=== PATIENT | female | born 1930 | race Caucasian/White ===

== ENCOUNTER 2017-04-09 11:43 | Inpatient (IN) | payer MEDICARE, BC ==
[2017-04-09] MEDS ORDERED: MECLIZINE 12.5 MG TAB PO STA (12:05)
[2017-04-09] MEDS ORDERED: SODIUM CHLORIDE 0.9% 500 ML IV STA (12:05)
[2017-04-09] MEDS ORDERED: RX INFO: IV CONTRAST WAS GIVEN 1 EACH MISC MISCELLANE PRN (12:06)
[2017-04-09 12:44] LABS: Basophils % (A) 1 %; CH 32.6; CHCM 33.5; Eosinophils # (A) 0.2 k/uL (0-0.7); Eosinophils % (A) 3 %; HDW 2.53; HGB 10.1 gm/dL (11.4-16.0); Luc # (Auto) 0.17; Luc % (Auto) 3; Lymphocytes % (A) 17 %; MCH 31.8 pg (25.0-35.0); MCHC 32.6 g/dL (31.0-37.0); MCV 97.7 fL (80.0-100.0); Mean Platelet Volume 8.7; Monocytes # (A) 0.4 k/uL (0-1.0); Monocytes % (A) 7 %; Neutrophils # (A) 3.8 k/uL (1.3-7.7); Neutrophils % (A) 69 %; RBC 3.17 m/uL (3.80-5.40); RDW 12.1 % (11.5-15.5); WBC 5.5 k/uL (3.8-10.6); WBC (Perox) 5.47
[2017-04-09 12:53] LABS: Calcium 8.7 mg/dL (8.4-10.2); Potassium 4.7 mmol/L (3.5-5.1); Total Bilirubin 0.1 mg/dL (0.2-1.3); Total Protein 6.4 g/dL (6.3-8.2)
[2017-04-09 12:58] LABS: INR 1.1 (<1.2); Prothrombin Time 10.7 sec (9.0-12.0)
--- NOTE | 2017-04-09 13:18 | XR ---
EXAMINATION TYPE: XR chest 2V DATE OF EXAM: 04/09/2017 COMPARISON: 07/30/2011 HISTORY: Dizziness TECHNIQUE: Frontal and lateral views of the chest are obtained. FINDINGS: There is no focal air space opacity, pleural effusion, or pneumothorax seen. The cardiac silhouette size is within normal limits. The osseous structures are intact. Minimal right basal ate lectasis since the right hemidiaphragm. Thoracic aorta is noted to be tortuous. Flowing osteophytes a re seen of the thoracic spine as well as intervertebral disc space narrowing and endplate sclerosis. Patient's chin obscures the left lung apex. IMPRESSION: Right basilar subsegmental atelectasis. No focal consolidation.
--- NOTE | 2017-04-09 13:45 | CT ---
EXAMINATION TYPE: CT brain wo con DATE OF EXAM: 04/09/2017 COMPARISON: 11/07/2014 HISTORY: Patient complains of dizziness. CT DLP: [address] of the brain was performed. The ventricles, basal cisterns and sulci overlying the cerebral convexities demonstrate mild enlargem ent. There is no evidence for intracranial hemorrhage or sulcal effacement. There is decreased attenuation about the periventricular white matter and deep white matter of both c erebral hemispheres, compatible with chronic small vessel ischemia. Differential diagnosis does inclu de demyelination. No mass effects are seen.No midline shift. Osseous calvarium is intact. If symptoms persist consider MRI. IMPRESSION: 1. Age related atrophic and chronic small vessel ischemic change without acute intracranial process s een at this time.
[2017-04-09 14:15] LABS: Appearance,Urine Clear (Clear); Bilirubin,Urine Negative (Negative); Glucose,Urine (UA) Negative (Negative); Ketones,Urine Negative (Negative); Leukocyte Esterase,Urine Negative (Negative); Nitrite,Urine Negative (Negative); Protein,Urine Negative (Negative); Specific Gravity,Urine 1.004 (1.001-1.035); UA Billing (MACRO vs. MICRO) CHEM; Urobilinogen,Urine <2.0 mg/dL (<2.0)
[2017-04-09] MEDS ORDERED: ASPIRIN 325 MG TAB PO STA (15:50)
[2017-04-09] MEDS ORDERED: NALOXONE 0.4 MG/ML 1 ML VIAL IV PRN (16:03)
[2017-04-09] MEDS ORDERED: ONDANSETRON 4 MG/2 ML VIAL IVP PRN (16:03)
--- NOTE | 2017-04-09 16:15 | ED ---
General Adult HPI - General Chief complaint: Dizziness Stated complaint: Dizziness x7 days Time Seen by Provider: 04/09/17 11:53 Source: patient, family, RN notes reviewed, old records reviewed Mode of arrival: wheelchair Limitations: no limitations - History of Present Illness Initial comments: 80 female with history of expressive aphasia presents for evaluation of vertigo over the past one week. Patient has had symptoms of vertigo for the past 3 years, she states that over the past week she had approximately 3 days of mild vertigo with no associated nausea or vomiting. She is able to contribute to the history of much of the history is obtained from her daughter who is a nurse and is at bedside. Her symptoms then resolved, and returned today. She also noted some difficulty hearing from her left ear. She states that she had this symptom approximately one month ago. Denies any URI symptoms. Denies chest pain or shortness of breath. Denies abdominal pain. Denies fever or chills. Denies dysuria. Denies palpitations. Has past medical history of hypertension , diabetes, and CVA with residual expressive aphasia. - Related Data Home Medications Medication Instructions Recorded Confirmed Dipyridamole-Aspirin 200-25 mg 1 cap PO BID 11/07/14 04/09/17 [Aggrenox] Furosemide [Lasix] 20 mg PO BID 11/07/14 04/09/17 HYDROmorphone [Dilaudid] 2 mg PO Q8H PRN 11/07/14 04/09/17 Lisinopril [Zestril] 10 mg PO BID 11/07/14 04/09/17 Pioglitazone HCl [Actos] 15 mg PO DAILY 11/07/14 04/09/17 Potassium Chloride ER [K-Dur 20] 20 meq PO BID 11/07/14 04/09/17 Sertraline HCl [Zoloft] 100 mg PO HS 11/07/14 04/09/17 amLODIPine [Norvasc] 5 mg PO DAILY 11/07/14 04/09/17 Cholecalciferol [Vitamin D3] 1,000 unit PO DAILY 04/09/17 04/09/17 Docusate [Colace] 200 mg PO BID 04/09/17 04/09/17 Levothyroxine Sodium [Synthroid] 100 mcg PO DAILY 04/09/17 04/09/17 Melatonin 5 mg PO HS PRN 04/09/17 04/09/17 Memantine [Namenda] 5 mg PO BID 04/09/17 04/09/17 Polyethylene Glycol 3350 [Miralax] 17 gm PO DAILY 04/09/17 04/09/17 Solifenacin Succinate [Vesicare] 10 mg PO DAILY 04/09/17 04/09/17 Vit C/E/Zn/Coppr/Lutein/Zeaxan 1 cap PO BID 04/09/17 04/09/17 [Preservision Areds 2 Softgel] Allergies Allergy/AdvReac Type Severity Reaction Status Date / Time cephalexin monohydrate Allergy Unknown Verified 04/09/17 12:36 [From Keflex] metronidazole [From Flagyl] Allergy Unknown Verified 04/09/17 12:36 morphine Allergy Unknown Verified 04/09/17 12:36 Sulfa (Sulfonamide Allergy Unknown Verified 04/09/17 12:36 Antibiotics) Penicillins AdvReac Unknown Verified 04/09/17 12:36 Review of Systems ROS Statement: Those systems with pertinent positive or pertinent negative responses have been documented in the HPI. ROS Other: All systems not noted in ROS Statement are negative. Past Medical History Past Medical History: CVA/TIA, Diabetes Mellitus, Hypertension History of Any Multi-Drug Resistant Organisms: None Reported Past Surgical History: Appendectomy, Bowel Resection, Breast Surgery, Hernia Repair, Hysterectomy Additional Past Surgical History / Comment(s): colostomy- reversed. Past Psychological History: Anxiety, Depression Smoking Status: Former smoker Past Alcohol Use History: None Reported Past Drug Use History: Unable to Obtain General Exam Limitations: no limitations General appearance: alert, in no apparent distress Head exam: Present: atraumatic, normocephalic Eye exam: Present: normal appearance, other (Pupils are minimally reactive, patient does have history of cataract). Absent: nystagmus ENT exam: Present: mucous membranes moist, TM's normal bilaterally, normal external ear exam, other (No abnormality in bilateral tympanic membranes or external auditory canal ) Neck exam: Present: normal inspection. Absent: tenderness, meningismus Respiratory exam: Present: normal lung sounds bilaterally. Absent: respiratory distress, wheezes Cardiovascular Exam: Present: normal rhythm, bradycardia GI/Abdominal exam: Present: soft. Absent: distended, tenderness, guarding Extremities exam: Present: normal inspection, full ROM, normal capillary refill. Absent: pedal edema Neurological exam: Present: alert, other (Patient has finger to nose ataxia in bilateral upper extremities, she does have decreased hearing in the left ear.) Psychiatric exam: Present: normal affect, normal mood Skin exam: Present: warm, dry. Absent: cyanosis, diaphoretic Course Vital Signs 04/09/17 04/09/17 04/09/17 11:47 12:41 13:26 Temperature 97.6 F Pulse Rate 53 L 54 L 54 L Respiratory 18 18 18 Rate Blood Pressure 145/67 149/81 138/58 O2 Sat by Pulse 100 99 99 Oximetry 04/09/17 04/09/17 14:06 15:30 Temperature 97.8 F Pulse Rate 54 L 53 L Respiratory 18 18 Rate Blood Pressure 166/72 117/57 O2 Sat by Pulse 99 98 Oximetry EKG Findings - EKG Comments: EKG Findings:: EKG shows sinus bradycardia with a ventricular rate of 50, she does have a incomplete left bundle with a QRS of 114, OH interval 206, QTC is 402 signs of ischemia Medical Decision Making - Medical Decision Making 80 female presenting with chief complaint of vertigo, this has been ongoing for some time. She does report worsening symptoms over the last week and intermittent hearing loss over the last one month. On examination the patient has decreased hearing in the left ear, no ataxia, finger to nose ataxia and bilateral upper extremities, remainder of the neurologic examination is unremarkable. Patient's workup including CBC, CMP is significant for mild elevation in serum creatinine of 1.35 above baseline of 1.1. Troponin is negative, urinalysis shows no signs of infection. Laboratory studies are otherwise unremarkable. Chest x-ray shows no acute process, CT the head is negative for intracranial hemorrhage or acute process. Case is discussed with Dr. Rose from neurology, does recommend the patient be given aspirin, and be admitted for continued workup. MRI will be ordered at this time. Diagnosis: Concern for central vertigo, ataxia. - Lab Data Result diagrams: 04/09/17 12:24 04/09/17 12:24 Lab Results 04/09/17 04/09/17 04/09/17 Range/Units 12:24 12:24 12:24 WBC 5.5 (3.8-10.6) k/uL RBC 3.17 L (3.80-5.40) m/uL Hgb 10.1 L (11.4-16.0) gm/dL Hct 31.0 L (34.0-46.0) % MCV 97.7 (80.0-100.0) fL MCH 31.8 (25.0-35.0) pg MCHC 32.6 (31.0-37.0) g/dL RDW 12.1 (11.5-15.5) % Plt Count 208 (150-450) k/uL Neutrophils % 69 % Lymphocytes % 17 % Monocytes % 7 % Eosinophils % 3 % Basophils % 1 % Neutrophils # 3.8 (1.3-7.7) k/uL Lymphocytes # 1.0 (1.0-4.8) k/uL Monocytes # 0.4 (0-1.0) k/uL Eosinophils # 0.2 (0-0.7) k/uL Basophils # 0.0 (0-0.2) k/uL PT (9.0-12.0) sec INR (<1.2) Sodium 139 (137-145) mmol/L Potassium 4.7 (3.5-5.1) mmol/L Chloride 104 (98-107) mmol/L Carbon Dioxide 27 (22-30) mmol/L Anion Gap 8 mmol/L BUN 43 H (7-17) mg/dL Creatinine 1.35 H (0.52-1.04) mg/dL Est GFR (MDRD) Af Amer 45 (>60 ml/min/1.73 sqM) Est GFR (MDRD) Non-Af 37 (>60 ml/min/1.73 sqM) Glucose 110 H (74-99) mg/dL Plasma Lactic Acid Brian 1.1 (0.7-2.0) mmol/L Calcium 8.7 (8.4-10.2) mg/dL Total Bilirubin 0.1 L (0.2-1.3) mg/dL AST 19 (14-36) U/L ALT 27 (9-52) U/L Alkaline Phosphatase 61 (38-126) U/L Troponin I (0.000-0.034) ng/mL Total Protein 6.4 (6.3-8.2) g/dL Albumin 3.8 (3.5-5.0) g/dL Urine Color Urine Appearance (Clear) Urine pH (5.0-8.0) Ur Specific [place] (1.001-1.035) Urine Protein (Negative) Urine Glucose (UA) (Negative) Urine Ketones (Negative) Urine Blood (Negative) Urine Nitrite (Negative) Urine Bilirubin (Negative) Urine Urobilinogen (<2.0) mg/dL Ur Leukocyte Esterase (Negative) 04/09/17 04/09/17 04/09/17 Range/Units 12:24 12:24 12:58 WBC (3.8-10.6) k/uL RBC (3.80-5.40) m/uL Hgb (11.4-16.0) gm/dL Hct (34.0-46.0) % MCV (80.0-100.0) fL MCH (25.0-35.0) pg MCHC (31.0-37.0) g/dL RDW (11.5-15.5) % Plt Count (150-450) k/uL Neutrophils % % Lymphocytes % % Monocytes % % Eosinophils % % Basophils % % Neutrophils # (1.3-7.7) k/uL Lymphocytes # (1.0-4.8) k/uL Monocytes # (0-1.0) k/uL Eosinophils # (0-0.7) k/uL Basophils # (0-0.2) k/uL PT 10.7 (9.0-12.0) sec INR 1.1 (<1.2) Sodium (137-145) mmol/L Potassium (3.5-5.1) mmol/L Chloride (98-107) mmol/L Carbon Dioxide (22-30) mmol/L Anion Gap mmol/L BUN (7-17) mg/dL Creatinine (0.52-1.04) mg/dL Est GFR (MDRD) Af Amer (>60 ml/min/1.73 sqM) Est GFR (MDRD) Non-Af (>60 ml/min/1.73 sqM) Glucose (74-99) mg/dL Plasma Lactic Acid Brian (0.7-2.0) mmol/L Calcium (8.4-10.2) mg/dL Total Bilirubin (0.2-1.3) mg/dL AST (14-36) U/L ALT (9-52) U/L Alkaline Phosphatase (38-126) U/L Troponin I <0.012 (0.000-0.034) ng/mL Total Protein (6.3-8.2) g/dL Albumin (3.5-5.0) g/dL Urine Color Light Yellow Urine Appearance Clear (Clear) Urine pH 5.0 (5.0-8.0) Ur Specific [place] 1.004 (1.001-1.035) Urine Protein Negative (Negative) Urine Glucose (UA) Negative (Negative) Urine Ketones Negative (Negative) Urine Blood Negative (Negative) Urine Nitrite Negative (Negative) Urine Bilirubin Negative (Negative) Urine Urobilinogen <2.0 (<2.0) mg/dL Ur Leukocyte Esterase Negative (Negative) Disposition Clinical Impression: Vertigo, central, Ataxia Disposition: ADMITTED IP TO THIS [facility] Condition: Stable Referrals: Micheal Peralta MD [Primary Care Provider] - 1-2 days Decision to Admit Reason: Admit from EC Decision Date: 04/09/17 Decision Time: 15:05
[2017-04-09] MEDS: SODIUM CHLORIDE 0.9% 1,000 ML IV SCH (16:25)
[2017-04-09] MEDS ORDERED: LORazepam 2 MG/ML SYRINGE IV STA (17:40)
--- NOTE | 2017-04-09 18:58 | MR ---
EXAMINATION TYPE: MR brain wo con DATE OF EXAM: 04/09/2017 COMPARISON: 02/21/2013 HISTORY: Dizzy, Spells, x1 week Standard multiplanar, multisequence MRI departmental protocol Multiplanar, multisequence images of the brain were acquired. Diffusion weighted imaging was performe d. FINDINGS: There is cerebral cortical atrophy. There is moderate patchy nodular increased signal in th e periventricular white matter with more than 25 foci. These measure up to almost 10 mm. There is no midline shift. There is no mass effect. I see no evidence of acute cortical infarct. There are tiny f oci of increased signal in the ángela that measure less than 3 mm. IMPRESSION: Numerous white matter lesions consistent with chronic small vessel ischemia that show increase in siz e and number compared to old MR scan. No evidence of a cortical infarct.
[2017-04-10] MEDS ORDERED: MELATONIN 5 MG TABLET PO PRN (08:14)
--- NOTE | 2017-04-10 08:40 | P.HPIM ---
History of Present Illness H&P Date: 04/10/17 Chief Complaint: Vertigo and hearing loss Is an 86-year-old white female well-known to me from the practice. She has a known history of unsteady gait. She also complained of hearing loss in the left ear mostly for the past 1 month. Significant history of dysphagia and dysarthria after CVA. She presented to emergency room with increased dizziness for one week. She denied any other complaints of fever, chills, chest pains, shortness of breath, nausea, vomiting, dysuria. 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 Past Anesthesia/Blood Transfusion Reactions: No Reported Reaction Past Psychological History: Anxiety, Depression Smoking Status: Former smoker Past Alcohol Use History: None Reported Additional Past Alcohol Use History / Comment(s): started smoking at age 14 and quit by age 58 smoked 1ppd. Past Drug Use History: Unable to Obtain - Past Family History Mother Family Medical History: CVA/TIA, Hypertension Father Family Medical History: Hypertension, Myocardial Infarction ([place]) Medications and Allergies Home Medications Medication Instructions Recorded Confirmed Type Dipyridamole-Aspirin 200-25 mg 1 cap PO BID 11/07/14 04/09/17 History [Aggrenox] Furosemide [Lasix] 20 mg PO BID 11/07/14 04/09/17 History HYDROmorphone [Dilaudid] 2 mg PO Q8H PRN 11/07/14 04/09/17 History Lisinopril [Zestril] 10 mg PO BID 11/07/14 04/09/17 History Pioglitazone HCl [Actos] 15 mg PO DAILY 11/07/14 04/09/17 History Potassium Chloride ER [K-Dur 20] 20 meq PO BID 11/07/14 04/09/17 History Sertraline HCl [Zoloft] 100 mg PO HS 11/07/14 04/09/17 History amLODIPine [Norvasc] 5 mg PO DAILY 11/07/14 04/09/17 History Cholecalciferol [Vitamin D3] 1,000 unit PO DAILY 04/09/17 04/09/17 History Docusate [Colace] 200 mg PO BID 04/09/17 04/09/17 History Levothyroxine Sodium [Synthroid] 100 mcg PO DAILY 04/09/17 04/09/17 History Melatonin 5 mg PO HS PRN 04/09/17 04/09/17 History Memantine [Namenda] 5 mg PO BID 04/09/17 04/09/17 History Polyethylene Glycol 3350 [Miralax] 17 gm PO DAILY 04/09/17 04/09/17 History Solifenacin Succinate [Vesicare] 10 mg PO DAILY 04/09/17 04/09/17 History Vit C/E/Zn/Coppr/Lutein/Zeaxan 1 cap PO BID 04/09/17 04/09/17 History [Preservision Areds 2 Softgel] Allergies Allergy/AdvReac Type Severity Reaction Status Date / Time cephalexin monohydrate Allergy Unknown Verified 04/09/17 12:36 [From Keflex] metronidazole [From Flagyl] Allergy Unknown Verified 04/09/17 12:36 morphine Allergy Unknown Verified 04/09/17 12:36 Sulfa (Sulfonamide Allergy Unknown Verified 04/09/17 12:36 Antibiotics) Penicillins AdvReac Unknown Verified 04/09/17 12:36 Physical Exam Vitals: Vital Signs Temp Pulse Pulse Resp BP BP Pulse Ox 04/10/17 07:00 97.5 F L 57 L 18 147/76 98 04/09/17 23:00 97.8 F 54 L 20 139/59 96 04/09/17 20:14 53 L 20 04/09/17 19:47 96.9 F L 53 L 20 134/60 98 04/09/17 16:45 98.0 F 55 L 18 170/75 98 04/09/17 15:30 97.8 F 53 L 18 117/57 98 04/09/17 14:06 54 L 18 166/72 99 04/09/17 13:26 54 L 18 138/58 99 04/09/17 12:41 54 L 18 149/81 99 04/09/17 11:47 97.6 F 53 L 18 145/67 100 Intake and Output 0804/10/17 04/10/17 22:59 06:59 14:59 Intake Total 0 100 Output Total 750 Balance 0 -650 Intake: Oral 0 100 Output: Urine 750 Other: # Voids 1 GENERAL: Asleep patient, easily arousable, she recognizes me, well-nourished and in no acute distress. He looks her stated age of 86 HEAD: Atraumatic, normocephalic. EYES: Pupils equal round and reactive to light, extraocular movements intact, sclera anicteric, conjunctiva are normal. ENT:nares patent, oropharynx clear without exudates. Moist mucous membranes. Tympanic membrane evaluation was not available as there was no otoscope on the floor today. NECK: Normal range of motion, supple without lymphadenopathy or JVD, no thyromegaly LUNGS: Breath sounds clear to auscultation bilaterally and equal. No wheezes rales or rhonchi. HEART: Regular rate and rhythm without murmurs, rubs or gallops.[id number] Normal ABDOMEN: Soft, nontender, normoactive bowel sounds. No guarding, no rebound. No masses appreciated. EXTREMITIES: Normal range of motion, no pitting or edema. No clubbing or cyanosis. NEUROLOGICAL: Cranial nerves II through XII grossly intact. Gait was not observed at this time, speech was dysarthric but is chronically this way. PSYCH: Normal mood, normal affect. SKIN: Warm, Dry, normal turgor, no rashes or lesions noted. Results CBC & Chem 7: 04/09/17 12:24 04/09/17 12:24 Labs: Abnormal Lab Results - Last 24 Hours (Table) 04/09/17 04/09/17 Range/Units 12:24 12:24 RBC 3.17 L (3.80-5.40) m/uL Hgb 10.1 L (11.4-16.0) gm/dL Hct 31.0 L (34.0-46.0) % BUN 43 H (7-17) mg/dL Creatinine 1.35 H (0.52-1.04) mg/dL Glucose 110 H (74-99) mg/dL Total Bilirubin 0.1 L (0.2-1.3) mg/dL Chest x-ray: report reviewed CT Scan - head: report reviewed MRI - head: report reviewed Assessment and Plan Plan: Vertigo with hearing loss: We'll consult ENT and neurology to rule out a cranial nerve 8 tumor. All she had a standard MRI, she may need a cone down view MRI. I'll await social recommendations. History of CVA with chronic dysarthria: We'll continue to monitor this. She'll remain on her Aggrenox. Hypertension: She'll remain on Zestril and amlodipine, and Lasix Hypothyroidism: Continue Synthroid. Dementia: She continues on Namenda. OAB: She'll continue on Ditropan XL Depression: She'll remain on Zoloft, this is stable Type 2 diabetes: She'll remain on pioglitazone GI prophylaxis: We'll add Pepcid during her stay. DVT prophylaxis: She will restart her aspirin. I will await consult recommendations regarding her vertigo and hearing loss. Her MRI shows chronic ischemic changes, which is consistent with her mild dementia, but doesn't show any cause for her ongoing hearing loss for the past month nor the vertigo.
--- NOTE | 2017-04-10 08:57 | P.CNNES ---
History of Present Illness Consult date: 04/09/17 Reason for Consult: Patient being evaluated for dizziness and gait ataxia. History of Present Illness: This patient is a 86-year-old female who was brought into the emergency room with increasing symptoms of expressive aphasia and vertigo. Apparently for the past 3 days she had been complaining of mild vertigo symptoms at home. She was having difficulty ambulating as well. Her symptoms seem to wax and wane. She was brought into the emergency room at [facility] for further evaluation. Apparently she also complained of hearing loss involving her left ear which was a new finding. She was sent for computed tomography scan of the brain which revealed chronic white matter ischemic changes. No acute stroke was noted. Given her history of worsening expressive aphasia, vertigo, and hearing loss involving the left ear there was concern for possibility of brainstem ischemia. Patient was recommended admission for a full neurological evaluation. She was able to complete a MRI of the brain soon after admission today. MRI reveals numerous white matter lesions consistent with chronic small vessel ischemia. There was increase in the size and number of these lesions as compared to a previous study done in February 2013. There was no evidence for acute stroke. Review of the actual MRI films today reveals frontotemporal atrophy of the brain. Patient seems to be back to baseline in terms of her functioning. She is now been admitted and neurology has been consulted for further evaluation and recommendations. Review of Systems Constitutional: Denies chills, Denies fever Eyes: denies blurred vision, denies pain Ears, nose, mouth and throat: Reports vertigo, Denies headache, Denies sore throat Cardiovascular: Denies chest pain, Denies shortness of breath Respiratory: Denies cough Gastrointestinal: Denies abdominal pain, Denies diarrhea, Denies nausea, Denies vomiting Genitourinary: Denies dysuria, Denies hematuria Musculoskeletal: Denies myalgias Integumentary: Denies pruritus, Denies rash Neurological: Reports ataxia, Reports change in speech, Reports gait dysfunction , Reports hearing difficulties, Reports memory loss, Reports vertigo, Denies numbness, Denies weakness Psychiatric: Denies anxiety, Denies depression Endocrine: Denies fatigue, Denies weight change Past Medical History Past Medical History: CVA/TIA, Diabetes Mellitus, Hypertension, Thyroid Disorder Additional Past Medical History / Comment(s): vertigo, 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 Past Anesthesia/Blood Transfusion Reactions: No Reported Reaction Past Psychological History: Anxiety, Depression Smoking Status: Former smoker Past Alcohol Use History: None Reported Additional Past Alcohol Use History / Comment(s): started smoking at age 14 and quit by age 58 smoked 1ppd. Past Drug Use History: Unable to Obtain - Past Family History Mother Family Medical History: CVA/TIA, Hypertension Father Family Medical History: Hypertension, Myocardial Infarction ([place]) Medications and Allergies Home Medications Medication Instructions Recorded Confirmed Type Dipyridamole-Aspirin 200-25 mg 1 cap PO BID 11/07/14 04/09/17 History [Aggrenox] Furosemide [Lasix] 20 mg PO BID 11/07/14 04/09/17 History HYDROmorphone [Dilaudid] 2 mg PO Q8H PRN 11/07/14 04/09/17 History Lisinopril [Zestril] 10 mg PO BID 11/07/14 04/09/17 History Pioglitazone HCl [Actos] 15 mg PO DAILY 11/07/14 04/09/17 History Potassium Chloride ER [K-Dur 20] 20 meq PO BID 11/07/14 04/09/17 History Sertraline HCl [Zoloft] 100 mg PO HS 11/07/14 04/09/17 History amLODIPine [Norvasc] 5 mg PO DAILY 11/07/14 04/09/17 History Cholecalciferol [Vitamin D3] 1,000 unit PO DAILY 04/09/17 04/09/17 History Docusate [Colace] 200 mg PO BID 04/09/17 04/09/17 History Levothyroxine Sodium [Synthroid] 100 mcg PO DAILY 04/09/17 04/09/17 History Melatonin 5 mg PO HS PRN 04/09/17 04/09/17 History Memantine [Namenda] 5 mg PO BID 04/09/17 04/09/17 History Polyethylene Glycol 3350 [Miralax] 17 gm PO DAILY 04/09/17 04/09/17 History Solifenacin Succinate [Vesicare] 10 mg PO DAILY 04/09/17 04/09/17 History Vit C/E/Zn/Coppr/Lutein/Zeaxan 1 cap PO BID 04/09/17 04/09/17 History [Preservision Areds 2 Softgel] Allergies Allergy/AdvReac Type Severity Reaction Status Date / Time cephalexin monohydrate Allergy Unknown Verified 04/09/17 12:36 [From Keflex] metronidazole [From Flagyl] Allergy Unknown Verified 04/09/17 12:36 morphine Allergy Unknown Verified 04/09/17 12:36 Sulfa (Sulfonamide Allergy Unknown Verified 04/09/17 12:36 Antibiotics) Penicillins AdvReac Unknown Verified 04/09/17 12:36 Physical Examination - Vital Signs Vital Signs: Vital Signs Temp Pulse Pulse Resp BP BP Pulse Ox 04/09/17 20:14 53 L 20 04/09/17 19:47 96.9 F L 53 L 20 134/60 98 04/09/17 16:45 98.0 F 55 L 18 170/75 98 04/09/17 15:30 97.8 F 53 L 18 117/57 98 04/09/17 14:06 54 L 18 166/72 99 04/09/17 13:26 54 L 18 138/58 99 04/09/17 12:41 54 L 18 149/81 99 04/09/17 11:47 97.6 F 53 L 18 145/67 100 Intake and Output 04/09/17 04/09/17 04/10/17 14:59 22:59 06:59 Other: Weight 64.41 kg Patient Weight 04/10/17 06:59 Weight 64.41 kg - Constitutional General appearance: average body habitus, cooperative - EENT EENT: PERRL, mucous membranes moist - Respiratory Respiratory: lungs clear, normal breath sounds - Cardiovascular Cardiovascular: regular rate, normal S1, normal S2 Extremities: no peripheral edema bilaterally - Gastrointestinal Gastrointestinal: normoactive bowel sounds - Integumentary Integumentary: normal - Neurologic Cranial nerve examination: PERRL, EOMI, VFF, V1/V2/V3 grossly intact, face symmetric, intact gag reflex, intact corneal reflex, normal palatal elevation Speech examination: intact Sensorimotor examination: intact Motor examination - right side: 4/5: biceps, triceps, wrist flexion, wrist extension, production stage manager, hip flexors, knee extensors, dorsiflexion, toe extension (EHL) , plantarflexion Motor examination - left side: 4/5: biceps, triceps, wrist flexion, wrist extension, production stage manager, hip flexors, knee extensors, dorsiflexion, toe extension (EHL) , plantarflexion Detailed sensory examination: intact Reflex and gait examination: intact Reflexes: 1+: ankle, bicep, knee, tricep Cerebellar examination: ataxia - Musculoskeletal Musculoskeletal: no pain - Psychiatric Psychiatric: mood/affect appropriate, cooperative Results - Laboratory Findings CBC and BMP: 04/09/17 12:24 04/09/17 12:24 Abnormal Lab Findings: Abnormal Labs 04/09/17 04/09/17 12:24 12:24 RBC 3.17 L Hgb 10.1 L Hct 31.0 L BUN 43 H Creatinine 1.35 H Glucose 110 H Total Bilirubin 0.1 L Assessment and Plan (1) Acute encephalopathy Status: Acute Code(s): G93.40 - ENCEPHALOPATHY, UNSPECIFIED (2) Ataxic gait Status: Acute Code(s): R26.0 - ATAXIC GAIT (3) Memory loss Status: Acute Code(s): R41.3 - OTHER AMNESIA (4) Vertigo, central Status: Acute Code(s): H81.49 - VERTIGO OF CENTRAL ORIGIN, UNSPECIFIED EAR (5) Hearing loss Status: Acute Code(s): H91.90 - UNSPECIFIED HEARING LOSS, UNSPECIFIED EAR Plan: This patient is a 86-year-old female who was admitted to Hospital with symptoms of worsening expressive aphasia and unsteady gait. She was also complaining of hearing loss involving her left ear. She was seen in the emergency room and was subsequent admitted to hospital today. She underwent MRI of the brain the results which are noted above. Patient seems to be doing her baseline level of function. MRI fails to reveal any evidence of brainstem stroke. It is unclear as to the cause of her left hearing loss and ataxic gait. We would recommend physical therapy evaluation for this patient. She is to continue on aspirin at this time. We will continue close neurological follow-up of this patient during this admission. Her overall prognosis at this time remains guarded. Time with Patient: Greater than 30
[2017-04-10] MEDS: FUROSEMIDE 20 MG TAB PO SCH ×2 (09:00→22:13)
[2017-04-10] MEDS: POTASSIUM CHLORIDE ER 20 MEQ TAB.ER PO SCH ×2 (09:00→22:14)
[2017-04-10] MEDS: PIOGLITAZONE 15 MG TAB PO SCH (09:00)
[2017-04-10] MEDS: POLYETHYLENE GLYCOL 3350 17 GM POWD.PACK PO SCH (09:00)
[2017-04-10] MEDS: MEMANTINE 5 MG TAB PO SCH ×2 (09:00→22:14)
[2017-04-10] MEDS ORDERED: ASPIRIN 325 MG TAB PO SCH (09:00)
[2017-04-10] MEDS: OXYBUTYNIN 10 MG TAB.ER.24 PO SCH (09:00)
[2017-04-10] MEDS: DIPYRIDAMOLE-ASPIRIN 200-25 MG 1 EACH CPMP.12HR PO SCH ×2 (09:00→22:13)
[2017-04-10] MEDS: amLODIPine 5 MG TAB PO SCH (09:00)
[2017-04-10] MEDS: DOCUSATE 100 MG CAP PO SCH ×2 (09:00→22:13)
[2017-04-10] MEDS: VIT A,C & E-LUTEIN-MINERALS 1 EACH TAB PO SCH ×2 (09:00→22:14)
[2017-04-10] MEDS: LISINOPRIL 10 MG TAB PO SCH ×2 (09:00→22:13)
[2017-04-10] MEDS ORDERED: CHOLECALCIFEROL 1,000 UNIT TAB PO SCH (12:00)
[2017-04-10 14:56] VITALS: RESP 20
[2017-04-10] MEDS: SODIUM CHLORIDE 0.9% 1,000 ML IV SCH (16:15)
[2017-04-10] MEDS ORDERED: SERTRALINE 100 MG TAB PO SCH (21:00)
[2017-04-11 06:09] VITALS: BP 133/59; PULSE 53; TEMP 98.2
[2017-04-11] MEDS ORDERED: LEVOTHYROXINE 100 MCG TAB PO SCH (06:30)
[2017-04-11 07:55] LABS: Basophils % (A) 1 %; CH 32.2; CHCM 32.6; Eosinophils # (A) 0.2 k/uL (0-0.7); Eosinophils % (A) 4 %; HCT 30.9 % (34.0-46.0); HGB 10.1 gm/dL (11.4-16.0); Luc # (Auto) 0.13; Luc % (Auto) 3; Lymphocytes % (A) 26 %; MCH 32.4 pg (25.0-35.0); MCHC 32.7 g/dL (31.0-37.0); MCV 99.2 fL (80.0-100.0); Mean Platelet Volume 7.6; Monocytes # (A) 0.3 k/uL (0-1.0); Monocytes % (A) 7 %; Neutrophils # (A) 2.4 k/uL (1.3-7.7); Neutrophils % (A) 60 %; RBC 3.11 m/uL (3.80-5.40); RDW 12.7 % (11.5-15.5); WBC (Perox) 4.01
[2017-04-11 08:18] LABS: Calcium 9.2 mg/dL (8.4-10.2); Potassium 4.2 mmol/L (3.5-5.1)
--- NOTE | 2017-04-11 08:24 | P.DS ---
Providers Date of admission: 04/09/17 16:03 Expected date of discharge: 04/11/17 Attending physician: Micheal Peralta Consults: 04/09/17 16:03 Consult Physician Stat Consulting Provider: Sherman Rose Consult Reason/Comments: Ataxia, concern for central vertigo Do you want consulting provider notified?: Already Contacted 04/10/17 16:50 Consult Physician Urgent Consulting Provider: Adithya Baumann Consult Reason/Comments: vertigo Do you want consulting provider notified?: Yes Primary care physician: Micheal Peralta [facility] Course: This Is an 86-year-old white female well-known to me from the practice. She has a known history of unsteady gait. She also complained of hearing loss in the left ear mostly for the past 1 month. Significant history of dysphagia and dysarthria after CVA. She presented to emergency room with increased dizziness for one week. She denied any other complaints of fever, chills, chest pains, shortness of breath, nausea, vomiting, dysuria. Overnight she has remained stable. Neurology had seen her evening of her admission, but her report was not available until later. They felt she was neurologically stable. ENT is unable to see her here in the hospital. Her hearing loss seems more chronic in nature investigate outpatient. Final diagnosis. Vertigo Left ear hearing loss. History of CVA with chronic dysarthria. Hypertension, hypothyroidism, dementia, OAB, depression, type 2 diabetes Patient Condition at Discharge: Poor Plan - Discharge Summary New Discharge Prescriptions: Continue amLODIPine [Norvasc] 5 mg PO DAILY Sertraline HCl [Zoloft] 100 mg PO HS Potassium Chloride ER [K-Dur 20] 20 meq PO BID Pioglitazone HCl [Actos] 15 mg PO DAILY Lisinopril [Zestril] 10 mg PO BID HYDROmorphone [Dilaudid] 2 mg PO Q8H PRN PRN Reason: Pain Furosemide [Lasix] 20 mg PO BID Dipyridamole-Aspirin 200-25 mg [Aggrenox 25MG -200MG] 1 cap PO BID Melatonin 5 mg PO HS PRN PRN Reason: Insomnia Cholecalciferol [Vitamin D3] 1,000 unit PO DAILY Vit C/E/Zn/Coppr/Lutein/Zeaxan [Preservision Areds 2 Softgel] 1 cap PO BID Solifenacin Succinate [Vesicare] 10 mg PO DAILY Docusate [Colace] 200 mg PO BID Levothyroxine Sodium [Synthroid] 100 mcg PO DAILY Memantine [Namenda] 5 mg PO BID Polyethylene Glycol 3350 [Miralax] 17 gm PO DAILY Discharge Medication List Dipyridamole-Aspirin 200-25 mg [Aggrenox 25MG -200MG] 1 cap PO BID 11/07/14 [ History] Furosemide [Lasix] 20 mg PO BID 11/07/14 [History] HYDROmorphone [Dilaudid] 2 mg PO Q8H PRN 11/07/14 [History] Lisinopril [Zestril] 10 mg PO BID 11/07/14 [History] Pioglitazone HCl [Actos] 15 mg PO DAILY 11/07/14 [History] Potassium Chloride ER [K-Dur 20] 20 meq PO BID 11/07/14 [History] Sertraline HCl [Zoloft] 100 mg PO HS 11/07/14 [History] amLODIPine [Norvasc] 5 mg PO DAILY 11/07/14 [History] Cholecalciferol [Vitamin D3] 1,000 unit PO DAILY 04/09/17 [History] Docusate [Colace] 200 mg PO BID 04/09/17 [History] Levothyroxine Sodium [Synthroid] 100 mcg PO DAILY 04/09/17 [History] Melatonin 5 mg PO HS PRN 04/09/17 [History] Memantine [Namenda] 5 mg PO BID 04/09/17 [History] Polyethylene Glycol 3350 [Miralax] 17 gm PO DAILY 04/09/17 [History] Solifenacin Succinate [Vesicare] 10 mg PO DAILY 04/09/17 [History] Vit C/E/Zn/Coppr/Lutein/Zeaxan [Preservision Areds 2 Softgel] 1 cap PO BID 04/09 [History] Follow up Appointment(s)/Referral(s): Agustín Blount DO [Doctor of Osteopathic Medicine] - 1 Week Micheal Peralta MD [Primary Care Provider] - 1-2 days Discharge Disposition: HOME SELF-CARE
[2017-04-11] MEDS: DOCUSATE 100 MG CAP PO SCH (10:44)
[2017-04-11] MEDS: VIT A,C & E-LUTEIN-MINERALS 1 EACH TAB PO SCH (10:44)
[2017-04-11] MEDS: FUROSEMIDE 20 MG TAB PO SCH (10:44)
[2017-04-11] MEDS: LISINOPRIL 10 MG TAB PO SCH (10:45)
[2017-04-11] MEDS: PIOGLITAZONE 15 MG TAB PO SCH (10:45)
[2017-04-11] MEDS: DIPYRIDAMOLE-ASPIRIN 200-25 MG 1 EACH CPMP.12HR PO SCH (10:45)
[2017-04-11] MEDS: amLODIPine 5 MG TAB PO SCH (10:45)
[2017-04-11] MEDS: POTASSIUM CHLORIDE ER 20 MEQ TAB.ER PO SCH (10:45)
[2017-04-11] MEDS: OXYBUTYNIN 10 MG TAB.ER.24 PO SCH (10:45)
[2017-04-11] MEDS: MEMANTINE 5 MG TAB PO SCH (10:45)
[2017-04-11] MEDS: POLYETHYLENE GLYCOL 3350 17 GM POWD.PACK PO SCH (10:46)
== END 2017-04-11 13:17 | disposition home or self-care (01) | DRG 149 ==
LOC: EC 11:43 → 4MS4W 16:03
PROVIDERS: ADMIT Family Medicine; ATTEND Family Medicine
DX: R42 Dizziness and giddiness (principal); R47.01 Aphasia; F03.90 Unspecified dementia, unspecified severity, without behavioral disturbance, psychotic disturbance, mood disturbance, and anxiety; E11.9 Type 2 diabetes mellitus without complications; I69.322 Dysarthria following cerebral infarction; R13.10 Dysphagia, unspecified; I69.391 Dysphagia following cerebral infarction; H91.92 Unspecified hearing loss, left ear; I10 Essential (primary) hypertension; E03.9 Hypothyroidism, unspecified; F32.9 Major depressive disorder, single episode, unspecified; F41.9 Anxiety disorder, unspecified; N32.81 Overactive bladder; Z79.84 Long term (current) use of oral hypoglycemic drugs; Z79.899 Other long term (current) drug therapy; Z90.710 Acquired absence of both cervix and uterus; Z87.891 Personal history of nicotine dependence; Z88.1 Allergy status to other antibiotic agents; Z88.5 Allergy status to narcotic agent; Z88.2 Allergy status to sulfonamides; Z88.8 Allergy status to other drugs, medicaments and biological substances
CPT/HCPCS: 36415; 70450; 70551; 71020; 80048; 80053; 81003; 83605; 84443; 84484; 85025; 85610; 93005; 95819; 99285

== ENCOUNTER 2017-10-14 16:30 | Emergency (ER) | payer MEDICARE, BC ==
[2017-10-14 16:37] VITALS: PULSE 55
[2017-10-14] MEDS ORDERED: KETOROLAC 60 MG/2 ML VIAL IM STA (17:01)
[2017-10-14] MEDS ORDERED: DIAZEPAM 5 MG/ML 2 ML INJ IM ONE (17:02)
--- NOTE | 2017-10-14 17:09 | ED ---
General Adult HPI - General Chief complaint: Neck Pain/Injury Stated complaint: Back Pain Time Seen by Provider: 10/14/17 16:35 Source: patient, family, RN notes reviewed Mode of arrival: ambulatory Limitations: no limitations - History of Present Illness Initial comments: This is an 87-year-old female comes in with chronic back pain patient states today he just got much worse so she came to the emergency department. Patient already taking Dilaudid at home. Patient is not taking any anti- inflammatories. Patient states she has not had any recent injury or fall. Patient states as long she lies still there is no pain. Patient states it hurts when she moves. Patient points to the area of pain it's just below the rib cage on the left and just above the iliac crest. It hurts to palpate it hurts to move. Patient denies any urinary symptoms patient denies any recent fever chills or cough. - Related Data Home Medications Medication Instructions Recorded Confirmed Dipyridamole-Aspirin 200-25 mg 1 cap PO BID 11/07/14 10/14/17 [Aggrenox 25MG -200MG] Furosemide [Lasix] 20 mg PO BID 11/07/14 10/14/17 HYDROmorphone [Dilaudid] 2 mg PO Q8H PRN 11/07/14 10/14/17 Lisinopril [Zestril] 10 mg PO BID 11/07/14 10/14/17 Pioglitazone HCl [Actos] 15 mg PO DAILY 11/07/14 10/14/17 Potassium Chloride ER [K-Dur 20] 20 meq PO DAILY 11/07/14 10/14/17 Sertraline HCl [Zoloft] 100 mg PO HS 11/07/14 10/14/17 amLODIPine [Norvasc] 5 mg PO DAILY 11/07/14 10/14/17 Docusate [Colace] 200 mg PO BID 04/09/17 10/14/17 Memantine [Namenda] 5 mg PO BID 04/09/17 10/14/17 Polyethylene Glycol 3350 [Miralax] 17 gm PO DAILY 04/09/17 10/14/17 Solifenacin Succinate [Vesicare] 10 mg PO DAILY 04/09/17 10/14/17 Vit C/E/Zn/Coppr/Lutein/Zeaxan 1 cap PO BID 04/09/17 10/14/17 [Preservision Areds 2 Softgel] Allergies Allergy/AdvReac Type Severity Reaction Status Date / Time cephalexin monohydrate Allergy Unknown Verified 10/14/17 17:19 [From Keflex] metronidazole [From Flagyl] Allergy Unknown Verified 10/14/17 17:19 morphine Allergy Unknown Verified 10/14/17 17:19 Sulfa (Sulfonamide Allergy Unknown Verified 10/14/17 17:19 Antibiotics) Penicillins AdvReac Unknown Verified 10/14/17 17:19 Review of Systems ROS Statement: Those systems with pertinent positive or pertinent negative responses have been documented in the HPI. ROS Other: All systems not noted in ROS Statement are negative. 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 Past Anesthesia/Blood Transfusion Reactions: No Reported Reaction Past Psychological History: Anxiety, Depression Smoking Status: Former smoker Past Alcohol Use History: None Reported Past Drug Use History: Unable to Obtain - Past Family History Mother Family Medical History: CVA/TIA, Hypertension Father Family Medical History: Hypertension, Myocardial Infarction ([place]) General Exam - General Exam Comments Initial Comments: GENERAL: Patient is well-developed and well-nourished. Patient is nontoxic and well- hydrated and is in no acute distress at rest the patient is moving ENT: Neck is soft and supple. No significant lymphadenopathy is noted. Oropharynx is clear. Moist mucous membranes. Neck has full range of motion without eliciting any pain. EYES: The sclera were anicteric and conjunctiva were pink and moist. Extraocular movements were intact and pupils were equal round and reactive to light. Eyelids were unremarkable. SKIN: Skin is clear with no lesions or rashes and otherwise unremarkable. NEUROLOGIC: Patient is alert and oriented x3. Cranial nerves II through XII are grossly intact. Motor and sensory are also intact. Normal speech, volume and content. Symmetrical smile. MUSCULOSKELETAL: Normal extremities with adequate strength and full range of motion. Patient has tenderness on the left mid back just below the rib cage just above the iliac crest LYMPHATICS: No significant lymphadenopathy is noted PSYCHIATRIC: Normal psychiatric evaluation. Limitations: no limitations Course Vital Signs 10/14/17 16:34 Temperature 98.2 F Pulse Rate 55 L Respiratory 20 Rate Blood Pressure 140/59 O2 Sat by Pulse 99 Oximetry Medical Decision Making - Medical Decision Making I will back into the room the patient was sleeping when I awoke her she stated she was feeling much better and was ready to go home. - Lab Data Lab Results 10/14/17 Range/Units 17:11 Urine Color Yellow Urine Appearance Clear (Clear) Urine pH 5.0 (5.0-8.0) Ur Specific [place] 1.011 (1.001-1.035) Urine Protein Negative (Negative) Urine Glucose (UA) Negative (Negative) Urine Ketones Negative (Negative) Urine Blood Negative (Negative) Urine Nitrite Negative (Negative) Urine Bilirubin Negative (Negative) Urine Urobilinogen <2.0 (<2.0) mg/dL Ur Leukocyte Esterase Negative (Negative) Disposition Clinical Impression: Lumbar strain Disposition: HOME SELF-CARE Condition: Good Instructions: Low Back Strain (ED) Additional Instructions: Patient should take Aleve once a day until she follows up with Dr. Peralta Referrals: Micheal Peralta MD [Primary Care Provider] - 1-2 days Time of Disposition: 18:13
[2017-10-14 17:20] LABS: Appearance,Urine Clear (Clear); Bilirubin,Urine Negative (Negative); Blood,Urine Negative (Negative); Color,Urine Yellow; Glucose,Urine (UA) Negative (Negative); Ketones,Urine Negative (Negative); Leukocyte Esterase,Urine Negative (Negative); Protein,Urine Negative (Negative); Specific Gravity,Urine 1.011 (1.001-1.035); Urobilinogen,Urine <2.0 mg/dL (<2.0)
[2017-10-14 18:30] VITALS: BP 150/79; RESP 18; TEMP 97.4
== END 2017-10-14 18:30 | disposition home or self-care (01) ==
LOC: EC 16:30
DX: S39.012A Strain of muscle, fascia and tendon of lower back, initial encounter (principal); I10 Essential (primary) hypertension; E11.9 Type 2 diabetes mellitus without complications; F32.9 Major depressive disorder, single episode, unspecified; F41.9 Anxiety disorder, unspecified; Z87.891 Personal history of nicotine dependence; Z79.82 Long term (current) use of aspirin; Z79.899 Other long term (current) drug therapy; Z88.0 Allergy status to penicillin; Z88.1 Allergy status to other antibiotic agents; Z88.2 Allergy status to sulfonamides; Z88.5 Allergy status to narcotic agent; Z86.73 Personal history of transient ischemic attack (TIA), and cerebral infarction without residual deficits; X58.XXXA Exposure to other specified factors, initial encounter
CPT/HCPCS: 81003; 99283; 96372 ×2; J3360; J1885

== ENCOUNTER 2017-11-13 15:33 | Inpatient (IN) | payer MEDICARE, BC ==
--- NOTE | 2017-11-13 16:11 | ED ---
General Adult HPI - General Chief complaint: Weakness Stated complaint: generalized weakness Time Seen by Provider: 11/13/17 15:41 Source: patient, RN notes reviewed, old records reviewed Mode of arrival: EMS - History of Present Illness Initial comments: 87-year-old female presenting for evaluation generalized weakness. Patient has had symptoms of progressive weakness over the past 3 weeks. She's been seen by her primary care physician, labs were ordered but have not been drawn. Patient does have history of expressive aphasia. Patient is accompanied by her daughter who is able to give history. She states that she has had some intermittent nausea, no significant vomiting. She did complain of a headache which was severe at times, currently denying headache. No focal weakness reported. No history of chest pain or difficulty breathing. No significant cough. No history of fever or chills. She was given additional doses of Lasix for some bilateral lower extremity swelling which is currently resolved. - Related Data Home Medications Medication Instructions Recorded Confirmed Dipyridamole-Aspirin 200-25 mg 1 cap PO BID 11/07/14 11/13/17 [Aggrenox 25MG -200MG] Furosemide [Lasix] 20 mg PO BID 11/07/14 11/13/17 HYDROmorphone [Dilaudid] 2 mg PO TID PRN 11/07/14 11/13/17 Lisinopril [Zestril] 10 mg PO BID 11/07/14 11/13/17 Pioglitazone HCl [Actos] 15 mg PO DAILY 11/07/14 11/13/17 Sertraline HCl [Zoloft] 100 mg PO HS 11/07/14 11/13/17 amLODIPine [Norvasc] 5 mg PO DAILY 11/07/14 11/13/17 Docusate [Colace] 200 mg PO BID 04/09/17 11/13/17 Memantine [Namenda] 5 mg PO BID 04/09/17 11/13/17 Polyethylene Glycol 3350 [Miralax] 17 gm PO DAILY 04/09/17 11/13/17 Solifenacin Succinate [Vesicare] 10 mg PO DAILY 04/09/17 11/13/17 Vit C/E/Zn/Coppr/Lutein/Zeaxan 1 cap PO BID 04/09/17 11/13/17 [Preservision Areds 2 Softgel] Potassium Chloride Oral Liquid 20 meq PO DAILY 11/13/17 11/13/17 Allergies Allergy/AdvReac Type Severity Reaction Status Date / Time cephalexin monohydrate Allergy Unknown Verified 11/13/17 15:52 [From Keflex] metronidazole [From Flagyl] Allergy Unknown Verified 11/13/17 15:52 morphine Allergy Unknown Verified 11/13/17 15:52 Sulfa (Sulfonamide Allergy Unknown Verified 11/13/17 15:52 Antibiotics) donepezil [From Aricept] AdvReac Confusion Verified 11/13/17 15:52 Penicillins AdvReac Unknown Verified 11/13/17 15:52 Review of Systems ROS Statement: Those systems with pertinent positive or pertinent negative responses have been documented in the HPI. ROS Other: All systems not noted in ROS Statement are negative. 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 Past Anesthesia/Blood Transfusion Reactions: No Reported Reaction Past Psychological History: Anxiety, Depression Smoking Status: Former smoker Past Alcohol Use History: None Reported Past Drug Use History: Unable to Obtain - Past Family History Mother Family Medical History: CVA/TIA, Hypertension Father Family Medical History: Hypertension, Myocardial Infarction ([place]) General Exam General appearance: alert, in no apparent distress Head exam: Present: atraumatic, normocephalic Eye exam: Present: normal appearance, PERRL ENT exam: Present: normal exam Neck exam: Present: normal inspection. Absent: tenderness, meningismus Respiratory exam: Present: normal lung sounds bilaterally. Absent: respiratory distress, wheezes Cardiovascular Exam: Present: normal rhythm, bradycardia, systolic murmur GI/Abdominal exam: Present: soft. Absent: distended, tenderness Extremities exam: Present: normal inspection, normal capillary refill, pedal edema (trace) Neurological exam: Present: alert, other (Expressive aphasia). Absent: motor sensory deficit Psychiatric exam: Present: normal affect, normal mood Skin exam: Present: warm, dry, intact. Absent: cyanosis, diaphoretic Course Vital Signs 11/13/17 11/13/17 15:41 16:54 Temperature 97.8 F Pulse Rate 48 L 47 L Respiratory 18 18 Rate Blood Pressure 177/75 169/74 O2 Sat by Pulse 100 98 Oximetry EKG Findings - EKG Comments: EKG Findings:: EKG: Sinus bradycardia, left axis deviation, ventricular rate 46 , MT interval 204, QRS duration 112, QTC 427 no signs of ischemia Medical Decision Making - Medical Decision Making 87-year-old female presenting with generalized weakness. Symptoms have been ongoing for several weeks. She is found to be bradycardic with a rate in the mid 40s, this is sinus. Blood pressure stable. Chest x-ray obtained, there is concern for right lower lobe pneumonia, patient clinically has had only minimal cough, no fever, normal white blood cell count, however she will be given a dose of antibiotics in the emergency department. Head CT obtained, negative for intracranial hemorrhage or mass effect. Creatinine 1.1 which is baseline. Normal electrolytes. Normal troponin and BNP. Patient's symptoms weakness may be related to bradycardia, she will be admitted for telemetry and cardiology evaluation. Case discussed with Dr. Osorio who will accept the admission. Urinalysis pending - Lab Data Result diagrams: 11/13/17 15:56 11/13/17 15:56 Lab Results 11/13/17 11/13/17 11/13/17 Range/Units 15:56 15:56 15:56 WBC 4.4 (3.8-10.6) k/uL RBC 3.16 L (3.80-5.40) m/uL Hgb 9.4 L (11.4-16.0) gm/dL Hct 28.8 L (34.0-46.0) % MCV 91.1 (80.0-100.0) fL MCH 29.8 (25.0-35.0) pg MCHC 32.7 (31.0-37.0) g/dL RDW 13.0 (11.5-15.5) % Plt Count 229 (150-450) k/uL Neutrophils % 61 % Lymphocytes % 25 % Monocytes % 8 % Eosinophils % 2 % Basophils % 1 % Neutrophils # 2.7 (1.3-7.7) k/uL Lymphocytes # 1.1 (1.0-4.8) k/uL Monocytes # 0.3 (0-1.0) k/uL Eosinophils # 0.1 (0-0.7) k/uL Basophils # 0.0 (0-0.2) k/uL PT (9.0-12.0) sec INR (<1.2) APTT (22.0-30.0) sec Sodium 141 (137-145) mmol/L Potassium 4.2 (3.5-5.1) mmol/L Chloride 103 (98-107) mmol/L Carbon Dioxide 27 (22-30) mmol/L Anion Gap 11 mmol/L BUN 38 H (7-17) mg/dL Creatinine 1.10 H (0.52-1.04) mg/dL Est GFR (CKD-EPI)AfAm 51 (>60 ml/min/1.73 sqM) Est GFR (CKD-EPI)NonAf 45 (>60 ml/min/1.73 sqM) Glucose 89 (74-99) mg/dL Plasma Lactic Acid Brian (0.7-2.0) mmol/L Calcium 9.6 (8.4-10.2) mg/dL Magnesium 2.3 (1.6-2.3) mg/dL Total Bilirubin 0.2 (0.2-1.3) mg/dL AST 20 (14-36) U/L ALT 15 (9-52) U/L Alkaline Phosphatase 66 (38-126) U/L Total Creatine Kinase 54 (30-135) U/L CK-MB (CK-2) 1.9 (0.0-2.4) ng/mL CK-MB (CK-2) Rel Index 3.5 Troponin I <0.012 (0.000-0.034) ng/mL NT-Pro-B Natriuret Pep pg/mL Total Protein 6.6 (6.3-8.2) g/dL Albumin 3.8 (3.5-5.0) g/dL 11/13/17 11/13/17 11/13/17 Range/Units 15:56 15:56 15:56 WBC (3.8-10.6) k/uL RBC (3.80-5.40) m/uL Hgb (11.4-16.0) gm/dL Hct (34.0-46.0) % MCV (80.0-100.0) fL MCH (25.0-35.0) pg MCHC (31.0-37.0) g/dL RDW (11.5-15.5) % Plt Count (150-450) k/uL Neutrophils % % Lymphocytes % % Monocytes % % Eosinophils % % Basophils % % Neutrophils # (1.3-7.7) k/uL Lymphocytes # (1.0-4.8) k/uL Monocytes # (0-1.0) k/uL Eosinophils # (0-0.7) k/uL Basophils # (0-0.2) k/uL PT 10.3 (9.0-12.0) sec INR 1.1 (<1.2) APTT 23.6 (22.0-30.0) sec Sodium (137-145) mmol/L Potassium (3.5-5.1) mmol/L Chloride (98-107) mmol/L Carbon Dioxide (22-30) mmol/L Anion Gap mmol/L BUN (7-17) mg/dL Creatinine (0.52-1.04) mg/dL Est GFR (CKD-EPI)AfAm (>60 ml/min/1.73 sqM) Est GFR (CKD-EPI)NonAf (>60 ml/min/1.73 sqM) Glucose (74-99) mg/dL Plasma Lactic Acid Brian 0.8 (0.7-2.0) mmol/L Calcium (8.4-10.2) mg/dL Magnesium (1.6-2.3) mg/dL Total Bilirubin (0.2-1.3) mg/dL AST (14-36) U/L ALT (9-52) U/L Alkaline Phosphatase (38-126) U/L Total Creatine Kinase (30-135) U/L CK-MB (CK-2) (0.0-2.4) ng/mL CK-MB (CK-2) Rel Index Troponin I (0.000-0.034) ng/mL NT-Pro-B Natriuret Pep 260 pg/mL Total Protein (6.3-8.2) g/dL Albumin (3.5-5.0) g/dL Disposition Clinical Impression: Symptomatic bradycardia Disposition: ADMITTED IP TO THIS HOSP Condition: Stable Referrals: Micheal Peralta MD [Primary Care Provider] - 1-2 days Decision to Admit Reason: Admit from EC Decision Date: 11/13/17 Decision Time: 17:24
[2017-11-13 16:17] LABS: Basophils % (A) 1 %; Eosinophils # (A) 0.1 k/uL (0-0.7); Eosinophils % (A) 2 %; HCT 28.8 % (34.0-46.0); HGB 9.4 gm/dL (11.4-16.0); Lymphocytes # (A) 1.1 k/uL (1.0-4.8); Lymphocytes % (A) 25 %; MCH 29.8 pg (25.0-35.0); MCHC 32.7 g/dL (31.0-37.0); MCV 91.1 fL (80.0-100.0); Mean Platelet Volume 7.5; Monocytes # (A) 0.3 k/uL (0-1.0); Monocytes % (A) 8 %; Neutrophils # (A) 2.7 k/uL (1.3-7.7); Neutrophils % (A) 61 %; Platelet Count 229 k/uL (150-450); RBC 3.16 m/uL (3.80-5.40); WBC 4.4 k/uL (3.8-10.6)
[2017-11-13 16:27] LABS: INR 1.1 (<1.2); Partial Thromboplastin Time 23.6 sec (22.0-30.0); Prothrombin Time 10.3 sec (9.0-12.0)
--- NOTE | 2017-11-13 16:32 | XR ---
EXAMINATION TYPE: XR chest 2V DATE OF EXAM: 11/13/2017 COMPARISON: 04/09/2017 HISTORY: Weakness TECHNIQUE: Frontal and lateral views of the chest are obtained. FINDINGS: There is no heart failure. Thoracic aorta is atheromatous. There is a possible infiltrate at the right cardiac border in the right lower lobe that is new compared to old exam. There are chest leads. IMPRESSION: There is some new right lower lobe pneumonia compared to old exam. No heart failure.
[2017-11-13 16:33] LABS: Creatine Kinase 54 U/L (30-135)
[2017-11-13 16:35] LABS: Albumin 3.8 g/dL (3.5-5.0); Calcium 9.6 mg/dL (8.4-10.2); Magnesium 2.3 mg/dL (1.6-2.3); Potassium 4.2 mmol/L (3.5-5.1); Total Bilirubin 0.2 mg/dL (0.2-1.3); Total Protein 6.6 g/dL (6.3-8.2)
--- NOTE | 2017-11-13 16:41 | CT ---
EXAMINATION TYPE: CT brain wo con DATE OF EXAM: 11/13/2017 COMPARISON: 04/09/2017 HISTORY: Patient poor historian. weakness. CT DLP: 1073 mGycm Automated exposure control for dose reduction was used. FINDINGS: There is cerebral cortical atrophy. There is no mass effect nor midline shift. There is no sign of in tracranial hemorrhage. The calvarium is intact. I see no bony destructive process. There is mild hypo density in the periventricular white matter. IMPRESSION: CEREBRAL ATROPHY AND CHRONIC SMALL VESSEL ISCHEMIA. NO ACUTE INTRACRANIAL ABNORMALITY. NO CHANGE.
[2017-11-13 16:46] LABS: Creatine Kinase MB 1.9 ng/mL (0.0-2.4); Troponin I <0.012 ng/mL (0.000-0.034)
[2017-11-13] MEDS ORDERED: NALOXONE 0.4 MG/ML 1 ML VIAL IV PRN (17:19)
[2017-11-13] MEDS ORDERED: LEVOFLOXACIN 750MG-D5W PMX 750 MG in DEXTROSE/WATER 1 150ML.BAG IVPB STA (17:25)
[2017-11-13 17:51] LABS: Appearance,Urine Clear (Clear); Bilirubin,Urine Negative (Negative); Blood,Urine Negative (Negative); Color,Urine Colorless; Glucose,Urine (UA) Negative (Negative); Ketones,Urine Negative (Negative); Leukocyte Esterase,Urine Negative (Negative); Nitrite,Urine Negative (Negative); PH, Urine 6.5 (5.0-8.0); Protein,Urine Negative (Negative); Specific Gravity,Urine 1.003 (1.001-1.035); Urobilinogen,Urine <2.0 mg/dL (<2.0)
[2017-11-13 18:47] LABS: Glucose,Whole Blood 103 mg/dL (75-99)
[2017-11-13 19:04] VITALS: BMI 27.3
[2017-11-13] MEDS: FUROSEMIDE 20 MG TAB PO SCH (20:19)
[2017-11-13] MEDS: LISINOPRIL 10 MG TAB PO SCH (20:19)
[2017-11-13] MEDS: MEMANTINE 5 MG TAB PO SCH (20:19)
[2017-11-13] MEDS: DOCUSATE 100 MG CAP PO SCH (20:19)
[2017-11-14] MEDS: ACETAMINOPHEN TAB 325 MG TAB PO PRN ×2 (01:44→13:23)
[2017-11-14] MEDS: HYDROmorphone 2 MG TAB PO PRN ×2 (04:15→11:55)
[2017-11-14 06:35] LABS: Basophils % (A) 1 %; Eosinophils # (A) 0.2 k/uL (0-0.7); Eosinophils % (A) 3 %; HGB 9.3 gm/dL (11.4-16.0); Lymphocytes # (A) 1.2 k/uL (1.0-4.8); Lymphocytes % (A) 22 %; MCH 29.4 pg (25.0-35.0); Mean Platelet Volume 7.3; Monocytes # (A) 0.5 k/uL (0-1.0); Monocytes % (A) 9 %; Neutrophils # (A) 3.5 k/uL (1.3-7.7); Neutrophils % (A) 64 %; Platelet Count 208 k/uL (150-450); RBC 3.15 m/uL (3.80-5.40); WBC 5.5 k/uL (3.8-10.6)
[2017-11-14 06:44] LABS: Albumin 3.6 g/dL (3.5-5.0); Calcium 9.2 mg/dL (8.4-10.2); Total Bilirubin 0.2 mg/dL (0.2-1.3); Total Protein 6.2 g/dL (6.3-8.2)
--- NOTE | 2017-11-14 08:51 | P.CRDCN ---
History of Present Illness Consult date: 11/14/17 Chief complaint: generalized weakness History of present illness: This is a pleasant 87-year-old female patient was brought by her family to the emergency room because of generalized weakness. The patient did suffer from multiple TIA in the past and currently she does have expressive aphasia and overall she is a poor historian. No indication for any chest pain or discomfort for or difficulty breathing, but she did have some generalized weakness according to her family. No dizziness or lightheadedness and no syncope. No documented history of coronary artery disease or congestive heart failure or any cardiac arrhythmia in the past. It was noticed that the patient has been bradycardic with a heart rate in the 50s. She was in the 40s when she came in yesterday. The patient is not on any AV kayli rebecca agents. The cardiac enzymes were checked and came in to be unremarkable. The chest x- ray showed possible right lower lobe pneumonia. The EKG showed sinus rhythm with sinus bradycardia without any acute or ischemic changes. 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 Past Anesthesia/Blood Transfusion Reactions: No Reported Reaction Past Psychological History: Anxiety, Depression Smoking Status: Former smoker Past Alcohol Use History: None Reported Additional Past Alcohol Use History / Comment(s): started smoking at age 14 and quit by age 58 smoked 1ppd. Past Drug Use History: Unable to Obtain - Past Family History Mother Family Medical History: CVA/TIA, Hypertension Father Family Medical History: Hypertension, Myocardial Infarction ([place]) Medications and Allergies Home Medications Medication Instructions Recorded Confirmed Type Dipyridamole-Aspirin 200-25 mg 1 cap PO BID 11/07/14 11/13/17 History [Aggrenox 25MG -200MG] Furosemide [Lasix] 20 mg PO BID 11/07/14 11/13/17 History HYDROmorphone [Dilaudid] 2 mg PO TID PRN 11/07/14 11/13/17 History Lisinopril [Zestril] 10 mg PO BID 11/07/14 11/13/17 History Pioglitazone HCl [Actos] 15 mg PO DAILY 11/07/14 11/13/17 History Sertraline HCl [Zoloft] 100 mg PO HS 11/07/14 11/13/17 History amLODIPine [Norvasc] 5 mg PO DAILY 11/07/14 11/13/17 History Docusate [Colace] 200 mg PO BID 04/09/17 11/13/17 History Memantine [Namenda] 5 mg PO BID 04/09/17 11/13/17 History Polyethylene Glycol 3350 [Miralax] 17 gm PO DAILY 04/09/17 11/13/17 History Solifenacin Succinate [Vesicare] 10 mg PO DAILY 04/09/17 11/13/17 History Vit C/E/Zn/Coppr/Lutein/Zeaxan 1 cap PO BID 04/09/17 11/13/17 History [Preservision Areds 2 Softgel] Potassium Chloride Oral Liquid 20 meq PO DAILY 11/13/17 11/13/17 History Allergies Allergy/AdvReac Type Severity Reaction Status Date / Time cephalexin monohydrate Allergy Unknown Verified 11/13/17 15:52 [From Keflex] metronidazole [From Flagyl] Allergy Unknown Verified 11/13/17 15:52 morphine Allergy Unknown Verified 11/13/17 15:52 Sulfa (Sulfonamide Allergy Unknown Verified 11/13/17 15:52 Antibiotics) donepezil [From Aricept] AdvReac Confusion Verified 11/13/17 15:52 Penicillins AdvReac Unknown Verified 11/13/17 15:52 Physical Exam Vitals: Vital Signs Temp Pulse Pulse Resp BP BP Pulse Ox 11/14/17 04:00 49 L 16 160/70 98 11/14/17 00:00 56 L 16 149/58 98 11/13/17 23:47 57 L 16 11/13/17 19:36 96.9 F L 57 L 16 136/66 100 11/13/17 18:45 96.6 F L 52 L 18 186/71 100 11/13/17 18:13 54 L 18 180/84 100 11/13/17 16:54 47 L 18 169/74 98 11/13/17 15:41 97.8 F 48 L 18 177/75 100 Intake and Output 11/13/17 11/14/17 11/14/17 22:59 06:59 14:59 Intake Total 450 Output Total 400 Balance 50 Intake: Oral 450 Output: Urine 400 Other: # Voids 1 Weight 63.503 kg 70 kg - Constitutional General appearance: no acute distress - Respiratory Respiratory: bilateral: CTA - Cardiovascular Rhythm: regular Heart sounds: normal: S1, S2 Abnormal Heart Sounds: systolic murmur Results 11/14/17 05:55 11/14/17 05:55 Cardiac Enzymes 11/13/17 11/13/17 11/14/17 Range/Units 15:56 15:56 05:55 AST 20 19 (14-36) U/L CK-MB (CK-2) 1.9 (0.0-2.4) ng/mL Troponin I <0.012 (0.000-0.034) ng/mL Coagulation 11/13/17 Range/Units 15:56 PT 10.3 (9.0-12.0) sec APTT 23.6 (22.0-30.0) sec CBC 11/13/17 11/14/17 Range/Units 15:56 05:55 WBC 4.4 5.5 (3.8-10.6) k/uL RBC 3.16 L 3.15 L (3.80-5.40) m/uL Hgb 9.4 L 9.3 L (11.4-16.0) gm/dL Hct 28.8 L 29.0 L (34.0-46.0) % Plt Count 229 208 (150-450) k/uL Comprehensive Metabolic Panel 11/13/17 11/14/17 Range/Units 15:56 05:55 Sodium 141 139 (137-145) mmol/L Potassium 4.2 4.0 (3.5-5.1) mmol/L Chloride 103 103 (98-107) mmol/L Carbon Dioxide 27 25 (22-30) mmol/L BUN 38 H 29 H (7-17) mg/dL Creatinine 1.10 H 1.12 H (0.52-1.04) mg/dL Glucose 89 103 H (74-99) mg/dL Calcium 9.6 9.2 (8.4-10.2) mg/dL AST 20 19 (14-36) U/L ALT 15 23 (9-52) U/L Alkaline Phosphatase 66 71 (38-126) U/L Total Protein 6.6 6.2 L (6.3-8.2) g/dL Albumin 3.8 3.6 (3.5-5.0) g/dL Current Medications Generic Name Dose Route Start Last Admin Trade Name Liliana PRN Reason Stop Dose Admin Acetaminophen 650 mg 11/13/17 17:19 11/14/17 01:44 Tylenol Tab PO 650 mg Q6HR PRN Administration Mild Pain or Fever > 100.5 Amlodipine Besylate 5 mg 11/14/17 09:00 Norvasc PO DAILY NOELLE Docusate Sodium 200 mg 11/13/17 21:00 11/13/17 20:19 Colace PO 200 mg BID NOELLE Administration Furosemide 20 mg 11/13/17 18:00 11/13/17 20:19 Lasix PO 20 mg 0900,1700 NOELLE Administration Hydromorphone HCl 2 mg 11/13/17 17:21 11/14/17 04:15 Dilaudid PO 2 mg TID PRN Administration Pain Lisinopril 10 mg 11/13/17 21:00 11/13/17 20:19 Zestril PO 10 mg BID NOELLE Administration Memantine 5 mg 11/13/17 21:00 11/13/17 20:19 Namenda PO 5 mg BID NOELLE Administration Naloxone HCl 0.2 mg 11/13/17 17:19 Narcan IV Q2M PRN Opioid Reversal Pioglitazone HCl 15 mg 11/14/17 09:00 Actos PO DAILY NOELLE Intake and Output 11/13/17 11/14/17 11/14/17 22:59 06:59 14:59 Intake Total 450 Output Total 400 Balance 50 Intake: Oral 450 Output: Urine 400 Other: # Voids 1 Weight 63.503 kg 70 kg 11/14/17 05:55 11/14/17 05:55 Assessment and Plan Assessment: assessment #1 sinus bradycardia seems to be asymptomatic so far #2 systemic hypertension #3 recurrent TIA #4 expressive aphasia Plan #1 the patient is not on any AV kayli rebecca agents #2 I will check the TSH to rule out any hypothyroidism #3 obtain an echocardiogram was Doppler #4 continue monitor the heart rate #5 follow-up with the patient. #6 she possibly need to have a permanent pacemaker but I will discuss that with her family if she needed to have it. Thank you for allowing us but spitting her care
[2017-11-14] MEDS: DOCUSATE 100 MG CAP PO SCH ×2 (09:30→20:34)
[2017-11-14] MEDS: FUROSEMIDE 20 MG TAB PO SCH ×2 (09:30→17:24)
[2017-11-14] MEDS: LISINOPRIL 10 MG TAB PO SCH ×2 (09:30→20:34)
[2017-11-14] MEDS: MEMANTINE 5 MG TAB PO SCH ×2 (09:31→20:34)
[2017-11-14] MEDS: amLODIPine 5 MG TAB PO SCH (09:34)
[2017-11-14] MEDS: PIOGLITAZONE 15 MG TAB PO SCH (10:33)
--- NOTE | 2017-11-14 10:37 | P.HPIM ---
History of Present Illness H&P Date: 11/14/17 Chief Complaint: Bradycardia weakness 87-year-old female known to the practice typically sees Dr. Peralta, presents to the hospital with weakness fatigue patient has expressive aphasia which is chronic Patient is not currently taking any kayli blockade blocking drugs, rate is somewhere around 40s, patient is a poor historian Review of Systems Constitutional: Reports as per HPI Ears, nose, mouth and throat: Reports as per HPI (Roman arrhythmia) Cardiovascular: Reports as per HPI, Reports high blood pressure (Roman arrhythmia) Respiratory: Reports as per HPI Gastrointestinal: Reports as per HPI Genitourinary: Reports as per HPI Menstruation: Reports as per HPI Musculoskeletal: Reports as per HPI Integumentary: Reports as per HPI Neurological: Reports as per HPI, Reports aphasia, Reports ataxia, Reports balance difficulties Past Medical History Past Medical History: CVA/TIA, Diabetes Mellitus, Hypertension, Thyroid Disorder Additional Past Medical History / Comment(s): vertigo, 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 Past Anesthesia/Blood Transfusion Reactions: No Reported Reaction Past Psychological History: Anxiety, Depression Smoking Status: Former smoker Past Alcohol Use History: None Reported Additional Past Alcohol Use History / Comment(s): started smoking at age 14 and quit by age 58 smoked 1ppd. Past Drug Use History: Unable to Obtain - Past Family History Mother Family Medical History: CVA/TIA, Hypertension Father Family Medical History: Hypertension, Myocardial Infarction ([place]) Medications and Allergies Home Medications Medication Instructions Recorded Confirmed Type Dipyridamole-Aspirin 200-25 mg 1 cap PO BID 11/07/14 11/13/17 History [Aggrenox 25MG -200MG] Furosemide [Lasix] 20 mg PO BID 11/07/14 11/13/17 History HYDROmorphone [Dilaudid] 2 mg PO TID PRN 11/07/14 11/13/17 History Lisinopril [Zestril] 10 mg PO BID 11/07/14 11/13/17 History Pioglitazone HCl [Actos] 15 mg PO DAILY 11/07/14 11/13/17 History Sertraline HCl [Zoloft] 100 mg PO HS 11/07/14 11/13/17 History amLODIPine [Norvasc] 5 mg PO DAILY 11/07/14 11/13/17 History Docusate [Colace] 200 mg PO BID 04/09/17 11/13/17 History Memantine [Namenda] 5 mg PO BID 04/09/17 11/13/17 History Polyethylene Glycol 3350 [Miralax] 17 gm PO DAILY 04/09/17 11/13/17 History Solifenacin Succinate [Vesicare] 10 mg PO DAILY 04/09/17 11/13/17 History Vit C/E/Zn/Coppr/Lutein/Zeaxan 1 cap PO BID 04/09/17 11/13/17 History [Preservision Areds 2 Softgel] Potassium Chloride Oral Liquid 20 meq PO DAILY 11/13/17 11/13/17 History Allergies Allergy/AdvReac Type Severity Reaction Status Date / Time cephalexin monohydrate Allergy Unknown Verified 11/13/17 15:52 [From Keflex] metronidazole [From Flagyl] Allergy Unknown Verified 11/13/17 15:52 morphine Allergy Unknown Verified 11/13/17 15:52 Sulfa (Sulfonamide Allergy Unknown Verified 11/13/17 15:52 Antibiotics) donepezil [From Aricept] AdvReac Confusion Verified 11/13/17 15:52 Penicillins AdvReac Unknown Verified 11/13/17 15:52 Physical Exam Osteopathic Statement: *. No significant issues noted on an osteopathic structural exam other than those noted in the History and Physical/Consult. Vitals: Vital Signs Temp Pulse Pulse Resp BP BP Pulse Ox 11/14/17 04:00 49 L 16 160/70 98 11/14/17 00:00 56 L 16 149/58 98 11/13/17 23:47 57 L 16 11/13/17 19:36 96.9 F L 57 L 16 136/66 100 11/13/17 18:45 96.6 F L 52 L 18 186/71 100 11/13/17 18:13 54 L 18 180/84 100 11/13/17 16:54 47 L 18 169/74 98 11/13/17 15:41 97.8 F 48 L 18 177/75 100 Intake and Output 11/13/17 11/14/17 11/14/17 22:59 06:59 14:59 Intake Total 450 Output Total 400 Balance 50 Intake: Oral 450 Output: Urine 400 Other: # Voids 1 Weight 63.503 kg 70 kg General: [Patient awake, alert and oriented times 3. Patient in no acute distress.] HEENT: [PERRL. EOMI. No pharyngeal erythema or exudate.] Neck: [No adenopathy.] Cardiac: [Heart Roman arrhythmia . No S3. No S4. No clicks, rubs. No murmur.] Lungs: [Clear to auscultation bilaterally.] Abdomen: [No mass. No organomegaly. Bowel sounds presnt and normoactive in all 4 quadrants.] Extremes: [No edema no cyanosis no claudication normal pulses] : [] Musculoskeletal: [No joint erythema, edema or tenderness.] Skin: [No rash.] Neurologic: [No lateralizing deficits. CN II - XII grossly intact.] Lymphatic: [No adenopathy.] Results CBC & Chem 7: 11/14/17 05:55 11/14/17 05:55 Labs: Abnormal Lab Results - Last 24 Hours (Table) 11/13/17 11/13/17 11/13/17 Range/Units 15:56 15:56 18:41 RBC 3.16 L (3.80-5.40) m/uL Hgb 9.4 L (11.4-16.0) gm/dL Hct 28.8 L (34.0-46.0) % BUN 38 H (7-17) mg/dL Creatinine 1.10 H (0.52-1.04) mg/dL Glucose (74-99) mg/dL POC Glucose (mg/dL) 103 H (75-99) mg/dL Total Protein (6.3-8.2) g/dL 11/14/17 11/14/17 Range/Units 05:55 05:55 RBC 3.15 L (3.80-5.40) m/uL Hgb 9.3 L (11.4-16.0) gm/dL Hct 29.0 L (34.0-46.0) % BUN 29 H (7-17) mg/dL Creatinine 1.12 H (0.52-1.04) mg/dL Glucose 103 H (74-99) mg/dL POC Glucose (mg/dL) (75-99) mg/dL Total Protein 6.2 L (6.3-8.2) g/dL Thrombosis Risk Factor Assmnt - Choose All That Apply Any of the Below Risk Factors Present?: Yes Each Factor Represents 1 point: Medical pt on bed rest Other Risk Factors: Yes Each Risk Factor Represents 2 Points: Patient confined to bed Each Risk Factor Represents 3 Points: Age 75 years or older Thrombosis Risk Factor Assessment Total Risk Factor Score: 6 Thrombosis Risk Factor Assessment Level: High Risk Assessment and Plan (1) Symptomatic bradycardia Narrative/Plan: Cardiology consult was performed 'Echocardiogram pending Possible pacemaker placement Current Visit: Yes Status: Acute Code(s): R00.1 - BRADYCARDIA, UNSPECIFIED SNOMED Code(s): 98550270 Time with Patient: Greater than 30
[2017-11-14] MEDS: VIT A,C & E-LUTEIN-MINERALS 1 EACH TAB PO SCH (17:24)
[2017-11-14] MEDS: DIPYRIDAMOLE-ASPIRIN 200-25 MG 1 EACH CPMP.12HR PO SCH (20:34)
[2017-11-14] MEDS: SERTRALINE 100 MG TAB PO SCH (20:34)
[2017-11-15] MEDS ORDERED: amLODIPine 5 MG TAB PO STA (02:30)
[2017-11-15] MEDS: LISINOPRIL 10 MG TAB PO SCH ×2 (04:35→22:34)
[2017-11-15 06:05] LABS: Glucose,Whole Blood 146 mg/dL (75-99)
[2017-11-15] MEDS: VIT A,C & E-LUTEIN-MINERALS 1 EACH TAB PO SCH ×2 (06:29→16:06)
[2017-11-15] MEDS: OXYBUTYNIN XL 5 MG TAB.ER.24 PO SCH (06:29)
[2017-11-15] MEDS: amLODIPine 5 MG TAB PO SCH (06:52)
[2017-11-15] MEDS: DOCUSATE 100 MG CAP PO SCH ×2 (09:01→22:33)
[2017-11-15] MEDS: DIPYRIDAMOLE-ASPIRIN 200-25 MG 1 EACH CPMP.12HR PO SCH ×2 (09:01→22:33)
[2017-11-15] MEDS: FUROSEMIDE 20 MG TAB PO SCH ×2 (09:01→16:06)
[2017-11-15] MEDS: POTASSIUM CHLORIDE ER 20 MEQ TAB.ER PO SCH (09:02)
[2017-11-15] MEDS: MEMANTINE 5 MG TAB PO SCH ×2 (09:02→22:34)
[2017-11-15] MEDS: POLYETHYLENE GLYCOL 3350 17 GM POWD.PACK PO SCH (09:02)
[2017-11-15] MEDS: PIOGLITAZONE 15 MG TAB PO SCH (09:02)
--- NOTE | 2017-11-15 09:47 | P.PN ---
Torey Canchola is a 87-year-old female who presented to the emergency room for n generalized weakness. She had symptoms of progressive weakness over the past 3 weeks. She's been seen by me, labs were ordered but have not been drawn. Patient does have history of expressive aphasia. Per Lolis, her daughter, She states that she has had some intermittent nausea, no significant vomiting. She did complain of a headache which was severe at times, currently denying headache. No focal weakness reported. No history of chest pain or difficulty breathing. No significant cough. No history of fever or chills. She was given additional doses of Lasix for some bilateral lower extremity swelling which is currently resolved. 11/15/2017 A she is currently going on 2-D echo. She is not able to give me a good history. Lolis, her daughter is not available talked to today. Objective - Vital Signs Vital signs: Vital Signs Temp 97.8 F 11/15/17 08:45 Pulse 72 11/15/17 08:45 Resp 18 11/15/17 08:45 BP 167/74 11/15/17 08:45 Pulse Ox 99 11/15/17 08:45 Intake & Output 11/14/17 11/15/17 11/15/17 18:59 06:59 18:59 Intake Total 360 Balance 360 Intake: Oral 360 Other: Voiding Method Bedside Commode Bedside Commode # Voids 1 0 - Exam General: The patient is awake and alert, in no distress, and does not appear acutely ill. She has expressive aphasia and is having trouble communicating with me. This is chronic. Neck: The neck is supple, there is no thyromegaly, lymphadenopathy, tenderness or JVD. Cardiovascular: S1S2 is normal, There is a regular rate and rhythm. No murmur, rub or gallop is appreciated. Respiratory: Lungs are clear to auscultation bilaterally, respirations are non -labored, breath sounds are equal. Further exam was deferred at this time. Patient is undergoing a 2-D echo. - Labs CBC & Chem 7: 11/14/17 05:55 11/14/17 05:55 Labs: Abnormal Lab Results - Last 24 Hours (Table) 11/15/17 Range/Units 06:03 POC Glucose (mg/dL) 146 H (75-99) mg/dL Assessment and Plan Plan: Symptomatic bradycardia present on admission, resolved: Cardiology has reviewed her case. A 2-D echo is pending. She is not on any medications that are inotropic. Her TSH was normal. They are not planning intervention. History of CVA and TIA: Continue Aggrenox. 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 Type 2 diabetes: Continue pioglitazone Hypertension: Continue amlodipine, Lasix,, potassium chloride, lisinopril OAB: Continue Vesicare Stage IV chronic renal failure: Stable, continue lisinopril this time. Anemia of chronic disease: Hemoglobin is 9.3, continue to monitor. Depression: Continue sertraline I'll have physical therapy see her. I will schedule her case with her daughter one negative chance. Weight on her 2-D echo. We have further recommendations cardiology.
--- NOTE | 2017-11-15 10:30 | P.PN ---
Subjective Progress Note Date: 11/15/17 Principal diagnosis: Weakness This is a pleasant 87-year-old female who was initially brought into the hospital because of generalized weakness. Patient has had history of multiple TIAs in the past and continues to have expressive aphasia. Patient was noted to be bradycardic on admission here with a heart rate of 40. She was not on any AV kayli blocking agents, TSH was normal. This morning her heart rate is in the low 60s to mid 60s. She was seen and examined this morning is feeling much better overall. Her echocardiogram with Doppler study remains pending. Blood pressure 166/70, heart rate in the 70s, we'll increase the dose of Norvasc to 10 mg daily. White Blood cell count 5.5, hemoglobin 9.3, platelet count 208. Sodium 139, potassium 4.0, BUN 29, creatinine 1.1. Objective - Vital Signs Vital signs: Vital Signs Temp 97.8 F 11/15/17 08:45 Pulse 72 11/15/17 08:45 Resp 18 11/15/17 08:45 BP 167/74 11/15/17 08:45 Pulse Ox 99 11/15/17 08:45 Intake & Output 11/14/17 11/15/17 11/15/17 18:59 06:59 18:59 Intake Total 360 Balance 360 Intake: Oral 360 Other: Voiding Method Bedside Commode Bedside Commode # Voids 1 0 - Exam PHYSICAL EXAMINATION: HEENT: Head is atraumatic, normocephalic. Pupils equal, round. Neck is supple. There is no elevated jugular venous pressure. HEART EXAMINATION: Heart S1 and S2 systolic murmur is heard. CHEST EXAMINATION: Lungs are clear to auscultation and precussion. No chest wall tenderness is noted on palpation or with deep breathing. ABDOMEN: Soft, nontender. Bowel sounds are heard. No organomegaly noted. EXTREMITIES: 2+ peripheral pulses with no evidence of peripheral edema and no calf tenderness noted. NEUROLOGIC patient is awake, alert and oriented -3. Positive expressive aphasia. . - Labs CBC & Chem 7: 11/14/17 05:55 11/14/17 05:55 Labs: Abnormal Lab Results - Last 24 Hours (Table) 11/15/17 Range/Units 06:03 POC Glucose (mg/dL) 146 H (75-99) mg/dL Assessment and Plan Plan: Assessment and plan #1 symptoms of weakness, patient was noted to be radiographically admission here. Heart rate this morning 58-60 #2 history of recurrent TIAs with residual expressive elevation #3 hypertension #4 diabetes # 5 hypothyroidism Plan We will increase the dose of Norvasc to 10 mg daily for more optimal blood pressure control. We will review her echocardiogram with Doppler study. From cardiology's perspective, if the echocardiogram is normal she may be able to be discharged home from our standpoint. We would be happy to follow her up as an outpatient. DNP note has been reviewed, I agree with a documented findings and plan of care. Patient was seen and examined.
--- NOTE | 2017-11-15 10:37 | ECHOF ---
Referral Reason:bradycardia MEASUREMENTS -------- HEIGHT: 152.4 cm WEIGHT: 69.9 kg BP: 179/75 RVIDd: 2.6 cm (< 3.3) IVSd: 1.1 cm (0.6 - 1.1) LVIDd: 4.3 cm (3.9 - 5.3) LVPWd: 1.3 cm (0.6 - 1.1) IVSs: 1.5 cm LVIDs: 3.1 cm LVPWs: 1.5 cm LA Diam: 2.8 cm (2.7 - 3.8) LAESV Index (A-L): 29.73 ml/m Ao Diam: 2.9 cm (2.0 - 3.7) AV Cusp: 1.9 cm (1.5 - 2.6) MV EXCURSION: 7.809 mm (> 18.000) MV EF SLOPE: 44 mm/s (70 - 150) EPSS: 0.7 cm MV E Jose David: 1.09 m/s MV DecT: 444 ms MV A Jose David: 1.45 m/s MV E/A Ratio: 0.75 AV maxP.28 mmHg AV meanP.27 mmHg RAP: 5.00 mmHg RVSP: 33.51 mmHg FINDINGS -------- Sinus rhythm. This was a technically adequate study. The left ventricular size is normal. There is mild concentric left ventricular hypertrophy. Overa ll left ventricular systolic function is normal with, an EF between 55 - 60 %. The right ventricle is normal in size. LA is midly dilated 29-33ml/m2. The right atrium is normal in size. There is mild aortic valve sclerosis. There is mild aortic stenosis present. The mitral valve leaflets are mildly thickened. Moderate mitral annular calcification present. T he peak and mean MV gradients are 11.71mmHg 3.89mmHg as measured by doppler. Mild tricuspid regurgitation present. Right ventricular systolic pressure is normal at < 35 mmHg. Trace/mild (physiologic) pulmonic regurgitation. The aortic root size is normal. Normal inferior vena cava with normal inspiratory collapse consistent with estimated right atrial pre ssure of 5 mmHg. There is no pericardial effusion. CONCLUSIONS -------- 1. Sinus rhythm. 2. This was a technically adequate study. 3. The left ventricular size is normal. 4. There is mild concentric left ventricular hypertrophy. 5. Overall left ventricular systolic function is normal with, an EF between 55 - 60 %. 6. The right ventricle is normal in size. 7. LA is midly dilated 29-33ml/m2. 8. The right atrium is normal in size. 9. There is mild aortic valve sclerosis. 10. There is mild aortic stenosis present. 11. The mitral valve leaflets are mildly thickened. 12. Moderate mitral annular calcification present. 13. The peak and mean MV gradients are 11.71mmHg 3.89mmHg as measured by doppler. 14. Mild tricuspid regurgitation present. 15. Right ventricular systolic pressure is normal at < 35 mmHg. 16. Trace/mild (physiologic) pulmonic regurgitation. 17. The aortic root size is normal. 18. Normal inferior vena cava with normal inspiratory collapse consistent with estimated right atrial pressure of 5 mmHg. 19. There is no pericardial effusion. CHAMBER WALKER: Johanne Astorga RDCS
[2017-11-15] MEDS: HYDROmorphone 2 MG TAB PO PRN (10:46)
[2017-11-15 11:54] LABS: Glucose,Whole Blood 130 mg/dL (75-99)
[2017-11-15 16:37] LABS: Glucose,Whole Blood 134 mg/dL (75-99)
[2017-11-15 21:00] LABS: Glucose,Whole Blood 145 mg/dL (75-99)
[2017-11-15] MEDS: SERTRALINE 100 MG TAB PO SCH (22:34)
[2017-11-16] MEDS: ACETAMINOPHEN TAB 325 MG TAB PO PRN ×2 (04:25→08:41)
[2017-11-16 06:05] LABS: Glucose,Whole Blood 264 mg/dL (75-99)
[2017-11-16 06:21] LABS: Basophils % (A) 0 %; Eosinophils # (A) 0.2 k/uL (0-0.7); Eosinophils % (A) 2 %; HCT 30.7 % (34.0-46.0); HGB 9.9 gm/dL (11.4-16.0); Lymphocytes # (A) 1.3 k/uL (1.0-4.8); Lymphocytes % (A) 15 %; MCH 30.2 pg (25.0-35.0); MCHC 32.3 g/dL (31.0-37.0); MCV 93.4 fL (80.0-100.0); Mean Platelet Volume 8.5; Monocytes # (A) 0.6 k/uL (0-1.0); Monocytes % (A) 7 %; Neutrophils # (A) 6.5 k/uL (1.3-7.7); Neutrophils % (A) 74 %; Platelet Count 166 k/uL (150-450); RBC 3.29 m/uL (3.80-5.40); RDW 12.7 % (11.5-15.5); WBC 8.7 k/uL (3.8-10.6)
[2017-11-16] MEDS: HYDROmorphone 2 MG TAB PO PRN (06:30)
[2017-11-16] MEDS: VIT A,C & E-LUTEIN-MINERALS 1 EACH TAB PO SCH (06:31)
[2017-11-16] MEDS: OXYBUTYNIN XL 5 MG TAB.ER.24 PO SCH (06:31)
[2017-11-16 06:36] LABS: Calcium 9.1 mg/dL (8.4-10.2)
[2017-11-16 06:37] LABS: Potassium 4.2 mmol/L (3.5-5.1)
[2017-11-16] MEDS ORDERED: amLODIPine 10 MG TAB PO SCH (09:00)
[2017-11-16] MEDS: DIPYRIDAMOLE-ASPIRIN 200-25 MG 1 EACH CPMP.12HR PO SCH (09:51)
[2017-11-16] MEDS: FUROSEMIDE 20 MG TAB PO SCH (09:51)
[2017-11-16] MEDS: POTASSIUM CHLORIDE ER 20 MEQ TAB.ER PO SCH (09:51)
[2017-11-16] MEDS: POLYETHYLENE GLYCOL 3350 17 GM POWD.PACK PO SCH (09:52)
[2017-11-16] MEDS: PIOGLITAZONE 15 MG TAB PO SCH (09:52)
[2017-11-16] MEDS: MEMANTINE 5 MG TAB PO SCH (09:52)
[2017-11-16] MEDS: LISINOPRIL 10 MG TAB PO SCH (09:52)
[2017-11-16] MEDS: DOCUSATE 100 MG CAP PO SCH (09:53)
--- NOTE | 2017-11-16 10:05 | P.DS ---
Providers Date of admission: 11/13/17 17:19 Expected date of discharge: 11/16/17 Attending physician: Jose Osorio Consults: 11/13/17 17:20 Consult Physician Routine Consulting Provider: Andre Esquivel Consult Reason/Comments: Symptomatic bradycardia Do you want consulting provider notified?: Yes Primary care physician: Micheal [facility] Course: 87-year-old female who presented to the emergency room with a chief complaint of generalized weakness and fatigue. The patient was found to be bradycardic with heart rate in the 40s. She is not prescribed any AV kayli blocking agents. TSH was normal. Heart rate has been in the 50-60s the entire hospitalization with the exception of a heart rate in the 40s when she first arrived to the hospital. She was evaluated by cardiology. Patient does not meet criteria for pacemaker insertion. Patient is to have an event monitor placed at the time of discharge per cardiology to evaluate if patient is having more frequent episodes of bradycardia or pauses at home that may be contributing to her symptoms. Echo was completed revealing EF 55-60%, mild aortic stenosis, mild tricuspid regurgitation, and trace pulmonic regurgitation. Blood pressure was elevated during hospitalization. Her norvasc was increased to 10mg PO per cardiology. CXR on admission did show some possible infiltrates in the right lower lobe. Patient has no clinical indications of pneumonia. She denied cough, shortness of breath, fever, sputum production. WBC was WNL on admission. She did receive a dose of antibiotics in the ER. CT of the brain was completed which was negative for acute process. PT/OT were consulted and evaluated patient. Patient deemed safe for home with home care and does not require subacute rehab per their recommendations. The patient was deemed stable for discharge per Dr. Peralta. She is to follow up on an outpatient basis with Dr. Peralta and cardiology. DISCHARGE DIAGNOSIS: Symptomatic bradycardia HR 40s, present on admission, HR has been 50-60s since that time, does not meet criteria for pacemaker insertion at this time, patient is not on any AV kayli blocking agents, TSH normal, resolved at the time of discharge. Patient to be discharged with event monitor per cardiology History of CVA with residual expressive aphasia Diabetes Mellitus, type 2 Essential hypertension Overactive bladder Stage IV CKD Anemia of chronic disease Depression, unspecified Nurse practitioner note has been reviewed by physician. Signing provider agrees with the documented findings, assessment, and plan of care. Patient Condition at Discharge: Stable Plan - Discharge Summary Discharge Rx Participant: Yes New Discharge Prescriptions: New amLODIPine [Norvasc] 10 mg PO DAILY #30 tab Continue Sertraline HCl [Zoloft] 100 mg PO HS Pioglitazone HCl [Actos] 15 mg PO DAILY Lisinopril [Zestril] 10 mg PO BID HYDROmorphone [Dilaudid] 2 mg PO TID PRN PRN Reason: Pain Furosemide [Lasix] 20 mg PO BID Dipyridamole-Aspirin 200-25 mg [Aggrenox 25MG -200MG] 1 cap PO BID Vit C/E/Zn/Coppr/Lutein/Zeaxan [Preservision Areds 2 Softgel] 1 cap PO BID Solifenacin Succinate [Vesicare] 10 mg PO DAILY Docusate [Colace] 200 mg PO BID Memantine [Namenda] 5 mg PO BID Polyethylene Glycol 3350 [Miralax] 17 gm PO DAILY Potassium Chloride Oral Liquid 20 meq PO DAILY Discontinued amLODIPine [Norvasc] 5 mg PO DAILY Discharge Medication List Dipyridamole-Aspirin 200-25 mg [Aggrenox 25MG -200MG] 1 cap PO BID 11/07/14 [ History] Furosemide [Lasix] 20 mg PO BID 11/07/14 [History] HYDROmorphone [Dilaudid] 2 mg PO TID PRN 11/07/14 [History] Lisinopril [Zestril] 10 mg PO BID 11/07/14 [History] Pioglitazone HCl [Actos] 15 mg PO DAILY 11/07/14 [History] Sertraline HCl [Zoloft] 100 mg PO HS 11/07/14 [History] Docusate [Colace] 200 mg PO BID 04/09/17 [History] Memantine [Namenda] 5 mg PO BID 04/09/17 [History] Polyethylene Glycol 3350 [Miralax] 17 gm PO DAILY 04/09/17 [History] Solifenacin Succinate [Vesicare] 10 mg PO DAILY 04/09/17 [History] Vit C/E/Zn/Coppr/Lutein/Zeaxan [Preservision Areds 2 Softgel] 1 cap PO BID 04/09 [History] Potassium Chloride Oral Liquid 20 meq PO DAILY 11/13/17 [History] amLODIPine [Norvasc] 10 mg PO DAILY #30 tab 11/16/17 [Rx] Follow up Appointment(s)/Referral(s): [facility] [Provider Group] - [facility], [NON-STAFF] - Micheal Peralta MD [Primary Care Provider] - 11/23/17 1:15 pm Patient Instructions/Handouts: Bradycardia (DC), Hypertension (DC) Activity/Diet/Wound Care/Special Instructions: Patient to receive event monitor today per cardiology before discharge Discharge Disposition: HOME WITH HOME HEALTH SERVICES
[2017-11-16 11:17] LABS: Glucose,Whole Blood 113 mg/dL (75-99)
[2017-11-16 11:51] VITALS: BP 145/72; RESP 14; TEMP 97
[2017-11-16 11:53] VITALS: PULSE 52
--- NOTE | 2017-11-16 15:05 | P.PN ---
Subjective Progress Note Date: 11/16/17 Principal diagnosis: Weakness This is a pleasant 87-year-old female who was initially brought into the hospital because of generalized weakness. Patient has had history of multiple TIAs in the past and continues to have expressive aphasia. Patient was noted to be bradycardic on admission here with a heart rate of 40. She was not on any AV kayli blocking agents, TSH was normal. This morning her heart rate is in the low 60s to mid 60s. She was seen and examined this morning is feeling much better overall. Her echocardiogram with Doppler study remains pending. Blood pressure 166/70, heart rate in the 70s, we'll increase the dose of Norvasc to 10 mg daily. White Blood cell count 5.5, hemoglobin 9.3, platelet count 208. Sodium 139, potassium 4.0, BUN 29, creatinine 1.1. Patient seen and examined this morning, she's been up ambulating with physical therapy in the hallway today. At that time her heart rate was up into the 60s and 70s. While resting her heart rate is in the mid 50s to low 60s. No evidence of any positives, no significant bradycardia. She will be discharged home today. Recommendation is that she be discharged with an event monitor. Follow-up appointment will be made with Dr. Uribe in the office following this. Objective - Vital Signs Vital signs: Vital Signs Temp 97.0 F L 11/16/17 08:00 Pulse 52 L 11/16/17 11:51 Resp 14 11/16/17 11:51 BP 145/72 11/16/17 08:00 Pulse Ox 96 11/16/17 08:00 Intake & Output 11/15/17 11/16/17 11/16/17 18:59 06:59 18:59 Intake Total 360 360 Output Total 400 Balance 360 -40 Weight 65.8 kg Intake: Oral 360 360 Output: Urine 400 Other: Voiding Method Bedside Commode Bedside Commode Bedside Commode # Voids 450 1 - Exam PHYSICAL EXAMINATION: HEENT: Head is atraumatic, normocephalic. Pupils equal, round. Neck is supple. There is no elevated jugular venous pressure. HEART EXAMINATION: Heart S1 and S2 systolic murmur is heard. CHEST EXAMINATION: Lungs are clear to auscultation and precussion. No chest wall tenderness is noted on palpation or with deep breathing. ABDOMEN: Soft, nontender. Bowel sounds are heard. No organomegaly noted. EXTREMITIES: 2+ peripheral pulses with no evidence of peripheral edema and no calf tenderness noted. NEUROLOGIC patient is awake, alert and oriented -3. Positive expressive aphasia. . - Labs CBC & Chem 7: 11/16/17 05:44 11/16/17 05:44 Labs: Abnormal Lab Results - Last 24 Hours (Table) 11/15/17 11/15/17 11/16/17 Range/Units 16:34 20:59 05:44 RBC 3.29 L (3.80-5.40) m/uL Hgb 9.9 L (11.4-16.0) gm/dL Hct 30.7 L (34.0-46.0) % Sodium (137-145) mmol/L Carbon Dioxide (22-30) mmol/L BUN (7-17) mg/dL Creatinine (0.52-1.04) mg/dL Glucose (74-99) mg/dL POC Glucose (mg/dL) 134 H 145 H (75-99) mg/dL 11/16/17 11/16/17 11/16/17 Range/Units 05:44 06:03 11:15 RBC (3.80-5.40) m/uL Hgb (11.4-16.0) gm/dL Hct (34.0-46.0) % Sodium 135 L (137-145) mmol/L Carbon Dioxide 20 L (22-30) mmol/L BUN 34 H (7-17) mg/dL Creatinine 1.40 H (0.52-1.04) mg/dL Glucose 193 H (74-99) mg/dL POC Glucose (mg/dL) 264 H 113 H (75-99) mg/dL Assessment and Plan Plan: Assessment and plan #1 symptoms of weakness, patient was noted to be radiographically admission here. Heart rate this morning 58-60 #2 history of recurrent TIAs with residual expressive elevation #3 hypertension #4 diabetes # 5 hypothyroidism Plan Cardiology's perspective, patient may be able to be discharged home today. We will make her a follow-up appointment with Dr. Uribe in the office post discharge. She will also have an event monitor on discharge. DNP note has been reviewed, I agree with a documented findings and plan of care. Patient was seen and examined.
== END 2017-11-16 15:37 | disposition home health service (06) | DRG 309 ==
LOC: EC 15:33 → 6SEL 17:19
PROVIDERS: ADMIT Family Medicine; ATTEND Family Medicine
DX: R00.1 Bradycardia, unspecified (principal); N18.4 Chronic kidney disease, stage 4 (severe); E11.22 Type 2 diabetes mellitus with diabetic chronic kidney disease; D63.1 Anemia in chronic kidney disease; E03.9 Hypothyroidism, unspecified; F32.9 Major depressive disorder, single episode, unspecified; F41.9 Anxiety disorder, unspecified; I12.9 Hypertensive chronic kidney disease with stage 1 through stage 4 chronic kidney disease, or unspecified chronic kidney disease; N32.81 Overactive bladder; I08.2 Rheumatic disorders of both aortic and tricuspid valves; R60.9 Edema, unspecified; H35.30 Unspecified macular degeneration; I69.920 Aphasia following unspecified cerebrovascular disease; Z85.3 Personal history of malignant neoplasm of breast; Z87.891 Personal history of nicotine dependence; Z90.13 Acquired absence of bilateral breasts and nipples; Z90.710 Acquired absence of both cervix and uterus; Z79.899 Other long term (current) drug therapy; Z88.1 Allergy status to other antibiotic agents; Z88.5 Allergy status to narcotic agent; Z88.0 Allergy status to penicillin; Z88.2 Allergy status to sulfonamides; Z88.8 Allergy status to other drugs, medicaments and biological substances; Z90.49 Acquired absence of other specified parts of digestive tract; Z82.3 Family history of stroke; Z82.49 Family history of ischemic heart disease and other diseases of the circulatory system
CPT/HCPCS: 36415; 70450; 71046; 80048; 80053; 81003; 82550; 82553; 83605; 83735; 83880; 84443; 84484; 85025; 85610; 85730; 93005; 93270; 93271; 93306; 96365; 99285

== ENCOUNTER 2017-12-24 16:57 | Inpatient (IN) | payer MEDICARE, BC ==
--- NOTE | 2017-12-24 17:30 | ED ---
Weakness HPI - General Chief complaint: Weakness Stated complaint: Weakness,Anemia Time Seen by Provider: 12/24/17 17:21 Source: family Mode of arrival: wheelchair - History of Present Illness Initial comments: Patient presents with generalized weakness. She believes her hemoglobin is low. She has a history of recurrent low hemoglobin. She has been worked up for this in the past. There has been no etiology found. Patient denies any blood in the stool. She has no black or tarry stool. Her weakness is nonfocal and nonradiating. Nothing makes it better or worse. Her symptoms have been getting worse for a week. She has no chest pain or shortness of breath. She has no lightheadedness or dizziness. She has no palpitations. She does have edema in the legs. This is chronic and unchanged from prior. - Related Data Home Medications Medication Instructions Recorded Confirmed Dipyridamole-Aspirin 200-25 mg 1 cap PO BID 11/07/14 12/24/17 [Aggrenox 25MG -200MG] Furosemide [Lasix] 20 mg PO BID 11/07/14 12/24/17 HYDROmorphone [Dilaudid] 2 mg PO TID PRN 11/07/14 12/24/17 Lisinopril [Zestril] 10 mg PO BID 11/07/14 12/24/17 Pioglitazone HCl [Actos] 15 mg PO DAILY 11/07/14 12/24/17 Sertraline HCl [Zoloft] 100 mg PO HS 11/07/14 12/24/17 Docusate [Colace] 100 mg PO BID 04/09/17 12/24/17 Memantine [Namenda] 5 mg PO BID 04/09/17 12/24/17 Polyethylene Glycol 3350 [Miralax] 17 gm PO DAILY 04/09/17 12/24/17 Solifenacin Succinate [Vesicare] 10 mg PO DAILY 04/09/17 12/24/17 Vit C/E/Zn/Coppr/Lutein/Zeaxan 1 cap PO BID 04/09/17 12/24/17 [Preservision Areds 2 Softgel] Potassium Chloride Oral Liquid 20 meq PO DAILY 11/13/17 12/24/17 Levothyroxine Sodium [Synthroid] 100 mcg PO DAILY 12/24/17 12/24/17 amLODIPine BESYLATE [Norvasc] 5 mg PO BID 12/24/17 12/24/17 Allergies Allergy/AdvReac Type Severity Reaction Status Date / Time cephalexin monohydrate Allergy Unknown Verified 12/24/17 17:49 [From Keflex] metronidazole [From Flagyl] Allergy Unknown Verified 12/24/17 17:49 morphine Allergy Unknown Verified 12/24/17 17:49 Sulfa (Sulfonamide Allergy Unknown Verified 12/24/17 17:49 Antibiotics) donepezil [From Aricept] AdvReac Confusion Verified 12/24/17 17:49 Penicillins AdvReac Unknown Verified 12/24/17 17:49 Review of Systems ROS Statement: Those systems with pertinent positive or pertinent negative responses have been documented in the HPI. ROS Other: All systems not noted in ROS Statement are negative. 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 Past Anesthesia/Blood Transfusion Reactions: No Reported Reaction Past Psychological History: Anxiety, Depression Smoking Status: Former smoker Past Alcohol Use History: None Reported Past Drug Use History: Unable to Obtain - Past Family History Mother Family Medical History: CVA/TIA, Hypertension Father Family Medical History: Hypertension, Myocardial Infarction ([place]) General Exam General appearance: alert, in no apparent distress Head exam: Present: atraumatic, normocephalic, normal inspection Eye exam: Present: normal appearance, PERRL, EOMI. Absent: scleral icterus, conjunctival injection, periorbital swelling ENT exam: Present: normal exam, mucous membranes moist Neck exam: Present: normal inspection. Absent: tenderness, meningismus, lymphadenopathy Respiratory exam: Present: normal lung sounds bilaterally. Absent: respiratory distress, wheezes, rales, rhonchi, stridor Cardiovascular Exam: Present: regular rate, normal rhythm, normal heart sounds. Absent: systolic murmur, diastolic murmur, rubs, gallop, clicks GI/Abdominal exam: Present: soft, normal bowel sounds. Absent: distended, tenderness, guarding, rebound, rigid Extremities exam: Present: normal inspection, full ROM, normal capillary refill , pedal edema. Absent: tenderness, joint swelling, calf tenderness Back exam: Present: normal inspection Neurological exam: Present: alert, oriented X3, CN II-XII intact Psychiatric exam: Present: normal affect, normal mood Skin exam: Present: warm, dry, intact, normal color. Absent: rash Course Vital Signs 12/24/17 12/24/17 12/24/17 17:09 18:30 19:26 Temperature 97.2 F L Pulse Rate 57 L 56 L 55 L Respiratory 18 18 16 Rate Blood Pressure 136/61 158/62 162/60 O2 Sat by Pulse 100 97 99 Oximetry EKG Findings - EKG Comments: EKG Findings:: Twelve-lead EKG shows ventricular rate 58 bpm, normal WA interval and QRS complexes, no ST elevation or depression, interpreted by me as sinus rhythm. Medical Decision Making - Medical Decision Making Patient presents with acute anemia. I ordered a blood transfusion. She will be admitted to the hospital. - Lab Data Result diagrams: 12/24/17 17:50 12/24/17 17:50 Lab Results 12/24/17 12/24/17 12/24/17 Range/Units 17:50 17:50 17:50 WBC 4.9 (3.8-10.6) k/uL RBC 2.68 L (3.80-5.40) m/uL Hgb 7.7 L D (11.4-16.0) gm/dL Hct 24.3 L (34.0-46.0) % MCV 90.4 (80.0-100.0) fL MCH 28.7 (25.0-35.0) pg MCHC 31.8 (31.0-37.0) g/dL RDW 13.3 (11.5-15.5) % Plt Count 244 (150-450) k/uL Neutrophils % 69 % Lymphocytes % 18 % Monocytes % 8 % Eosinophils % 2 % Basophils % 1 % Neutrophils # 3.4 (1.3-7.7) k/uL Lymphocytes # 0.9 L (1.0-4.8) k/uL Monocytes # 0.4 (0-1.0) k/uL Eosinophils # 0.1 (0-0.7) k/uL Basophils # 0.0 (0-0.2) k/uL Hypochromasia Slight PT (9.0-12.0) sec INR (<1.2) APTT (22.0-30.0) sec Sodium 144 (137-145) mmol/L Potassium 4.1 (3.5-5.1) mmol/L Chloride 106 (98-107) mmol/L Carbon Dioxide 24 (22-30) mmol/L Anion Gap 14 mmol/L BUN 42 H (7-17) mg/dL Creatinine 1.20 H (0.52-1.04) mg/dL Est GFR (CKD-EPI)AfAm 46 (>60 ml/min/1.73 sqM) Est GFR (CKD-EPI)NonAf 40 (>60 ml/min/1.73 sqM) Glucose 114 H (74-99) mg/dL Calcium 9.4 (8.4-10.2) mg/dL Magnesium 2.2 (1.6-2.3) mg/dL Total Bilirubin 0.2 (0.2-1.3) mg/dL AST 17 (14-36) U/L ALT 25 (9-52) U/L Alkaline Phosphatase 62 (38-126) U/L Troponin I (0.000-0.034) ng/mL NT-Pro-B Natriuret Pep 499 pg/mL Total Protein 6.2 L (6.3-8.2) g/dL Albumin 3.7 (3.5-5.0) g/dL 12/24/17 12/24/17 Range/Units 17:50 17:50 WBC (3.8-10.6) k/uL RBC (3.80-5.40) m/uL Hgb (11.4-16.0) gm/dL Hct (34.0-46.0) % MCV (80.0-100.0) fL MCH (25.0-35.0) pg MCHC (31.0-37.0) g/dL RDW (11.5-15.5) % Plt Count (150-450) k/uL Neutrophils % % Lymphocytes % % Monocytes % % Eosinophils % % Basophils % % Neutrophils # (1.3-7.7) k/uL Lymphocytes # (1.0-4.8) k/uL Monocytes # (0-1.0) k/uL Eosinophils # (0-0.7) k/uL Basophils # (0-0.2) k/uL Hypochromasia PT 10.4 (9.0-12.0) sec INR 1.1 (<1.2) APTT 22.1 (22.0-30.0) sec Sodium (137-145) mmol/L Potassium (3.5-5.1) mmol/L Chloride (98-107) mmol/L Carbon Dioxide (22-30) mmol/L Anion Gap mmol/L BUN (7-17) mg/dL Creatinine (0.52-1.04) mg/dL Est GFR (CKD-EPI)AfAm (>60 ml/min/1.73 sqM) Est GFR (CKD-EPI)NonAf (>60 ml/min/1.73 sqM) Glucose (74-99) mg/dL Calcium (8.4-10.2) mg/dL Magnesium (1.6-2.3) mg/dL Total Bilirubin (0.2-1.3) mg/dL AST (14-36) U/L ALT (9-52) U/L Alkaline Phosphatase (38-126) U/L Troponin I <0.012 (0.000-0.034) ng/mL NT-Pro-B Natriuret Pep pg/mL Total Protein (6.3-8.2) g/dL Albumin (3.5-5.0) g/dL Disposition Clinical Impression: Anemia Disposition: ADMITTED IP TO THIS HOSP Condition: Fair Is patient prescribed a controlled substance at d/c from ED?: No Referrals: Micheal Peralta MD [Primary Care Provider] - 1-2 days
[2017-12-24 18:11] LABS: Basophils % (A) 1 %; Eosinophils # (A) 0.1 k/uL (0-0.7); Eosinophils % (A) 2 %; HCT 24.3 % (34.0-46.0); Hypochromasia Slight; Lymphocytes # (A) 0.9 k/uL (1.0-4.8); Lymphocytes % (A) 18 %; MCH 28.7 pg (25.0-35.0); MCHC 31.8 g/dL (31.0-37.0); MCV 90.4 fL (80.0-100.0); Mean Platelet Volume 7.7; Monocytes # (A) 0.4 k/uL (0-1.0); Monocytes % (A) 8 %; Neutrophils # (A) 3.4 k/uL (1.3-7.7); Neutrophils % (A) 69 %; Platelet Count 244 k/uL (150-450); RBC 2.68 m/uL (3.80-5.40); RDW 13.3 % (11.5-15.5); WBC 4.9 k/uL (3.8-10.6)
--- NOTE | 2017-12-24 18:14 | XR ---
EXAMINATION TYPE: XR chest 2V DATE OF EXAM: 12/24/2017 COMPARISON: 11/13/2017 HISTORY: Weakness TECHNIQUE: Frontal and lateral views of the chest are obtained. FINDINGS: There is no heart failure nor confluent pneumonic infiltrate. Costophrenic angles are morgan r. Thoracic aorta is atheromatous. There are chest leads. There is spurring in the thoracic spine. IMPRESSION: No active cardiopulmonary disease. No change.
[2017-12-24 18:15] LABS: Albumin 3.7 g/dL (3.5-5.0); Calcium 9.4 mg/dL (8.4-10.2); Magnesium 2.2 mg/dL (1.6-2.3); Potassium 4.1 mmol/L (3.5-5.1); Total Bilirubin 0.2 mg/dL (0.2-1.3); Total Protein 6.2 g/dL (6.3-8.2)
[2017-12-24 18:18] LABS: INR 1.1 (<1.2); Partial Thromboplastin Time 22.1 sec (22.0-30.0); Prothrombin Time 10.4 sec (9.0-12.0)
[2017-12-24 18:19] LABS: HGB 7.7 gm/dL (11.4-16.0)
[2017-12-24 19:47] LABS: Appearance,Urine Clear (Clear); Bilirubin,Urine Negative (Negative); Blood,Urine Negative (Negative); Color,Urine Light Yellow; Glucose,Urine (UA) Negative (Negative); Hyaline Casts,Urine 11 /lpf (0-2); Ketones,Urine Negative (Negative); Leukocyte Esterase,Urine Trace (Negative); Mucus,Urine Rare /hpf; Nitrite,Urine Negative (Negative); PH, Urine 5.5 (5.0-8.0); Protein,Urine Negative (Negative); Specific Gravity,Urine 1.007 (1.001-1.035); Squamous Epithelial Cell,Urine <1 /hpf (0-4); Urobilinogen,Urine <2.0 mg/dL (<2.0); WBC,Urine 2 /hpf (0-5)
[2017-12-24] MEDS ORDERED: TEMAZEPAM 15 MG CAP PO PRN (19:59)
[2017-12-24] MEDS ORDERED: ONDANSETRON 4 MG/2 ML VIAL IVP PRN (19:59)
[2017-12-24] MEDS ORDERED: NALOXONE 0.4 MG/ML 1 ML VIAL IV PRN (19:59)
[2017-12-24] MEDS ORDERED: SERTRALINE 100 MG TAB PO SCH (21:00)
[2017-12-24] MEDS ORDERED: FAMOTIDINE 20 MG TAB PO SCH (21:00)
[2017-12-24] MEDS: LISINOPRIL 10 MG TAB PO SCH (22:18)
[2017-12-24] MEDS: MEMANTINE 5 MG TAB PO SCH (22:18)
[2017-12-24] MEDS: amLODIPine 5 MG TAB PO SCH (22:18)
[2017-12-24] MEDS: FUROSEMIDE 20 MG TAB PO SCH (22:18)
[2017-12-24] MEDS: DOCUSATE 100 MG CAP PO SCH (22:19)
[2017-12-24 22:43] VITALS: BMI 29.5
[2017-12-25] MEDS ORDERED: LEVOTHYROXINE 100 MCG TAB PO SCH (06:30)
[2017-12-25 06:46] LABS: Basophils % (A) 0 %; Eosinophils # (A) 0.2 k/uL (0-0.7); Eosinophils % (A) 3 %; HCT 27.6 % (34.0-46.0); HGB 8.8 gm/dL (11.4-16.0); Hypochromasia Slight; Lymphocytes # (A) 1.5 k/uL (1.0-4.8); Lymphocytes % (A) 30 %; MCHC 31.8 g/dL (31.0-37.0); MCV 91.1 fL (80.0-100.0); Mean Platelet Volume 7.3; Monocytes # (A) 0.4 k/uL (0-1.0); Monocytes % (A) 7 %; Neutrophils # (A) 2.9 k/uL (1.3-7.7); Neutrophils % (A) 57 %; Platelet Count 218 k/uL (150-450); RBC 3.03 m/uL (3.80-5.40); RDW 13.4 % (11.5-15.5)
[2017-12-25 07:03] LABS: Albumin 3.6 g/dL (3.5-5.0); Potassium 4.2 mmol/L (3.5-5.1); Total Bilirubin 0.3 mg/dL (0.2-1.3); Total Protein 6.1 g/dL (6.3-8.2)
[2017-12-25] MEDS ORDERED: PIOGLITAZONE 15 MG TAB PO SCH (09:00)
[2017-12-25] MEDS ORDERED: POTASSIUM BICARBONATE/CIT AC 20 MEQ TABLET.EFF PO SCH (09:00)
[2017-12-25] MEDS ORDERED: POLYETHYLENE GLYCOL 3350 17 GM POWD.PACK PO SCH (09:00)
[2017-12-25] MEDS: DOCUSATE 100 MG CAP PO SCH (09:20)
[2017-12-25] MEDS: FUROSEMIDE 20 MG TAB PO SCH (09:20)
[2017-12-25] MEDS: amLODIPine 5 MG TAB PO SCH (09:20)
[2017-12-25] MEDS: LISINOPRIL 10 MG TAB PO SCH (09:21)
[2017-12-25] MEDS: MEMANTINE 5 MG TAB PO SCH (09:21)
[2017-12-25] MEDS ORDERED: FUROSEMIDE 10 MG/ML 2 ML VIAL IV ONE (13:15)
--- NOTE | 2017-12-25 13:26 | P.HPIM ---
History of Present Illness H&P Date: 12/25/17 Chief Complaint: Weakness symptomatic anemia This is a 87-year-old female well-known to our practice who periodically becomes anemic cause unknown patient has worked at many marked up multiple times for chronic anemia we've discussed diet, patient has had the anemia workup multiple times there is no blood in her stool no vomiting blood no nausea. Patient is otherwise actually feeling quite well was transfused 1 unit of packed red cells in the emergency room. [place] visit her other daughter for Mother's Day we will gladly transfuse second unit and discharged patient home. 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 Past Anesthesia/Blood Transfusion Reactions: No Reported Reaction Past Psychological History: Anxiety, Depression Smoking Status: Former smoker Past Alcohol Use History: None Reported Additional Past Alcohol Use History / Comment(s): started smoking at age 14 and quit by age 58 smoked 1ppd. Past Drug Use History: Unable to Obtain - Past Family History Mother Family Medical History: CVA/TIA, Hypertension Father Family Medical History: Hypertension, Myocardial Infarction ([place]) Medications and Allergies Home Medications Medication Instructions Recorded Confirmed Type Dipyridamole-Aspirin 200-25 mg 1 cap PO BID 11/07/14 12/24/17 History [Aggrenox 25MG -200MG] Furosemide [Lasix] 20 mg PO BID 11/07/14 12/24/17 History HYDROmorphone [Dilaudid] 2 mg PO TID PRN 11/07/14 12/24/17 History Lisinopril [Zestril] 10 mg PO BID 11/07/14 12/24/17 History Pioglitazone HCl [Actos] 15 mg PO DAILY 11/07/14 12/24/17 History Sertraline HCl [Zoloft] 100 mg PO HS 11/07/14 12/24/17 History Docusate [Colace] 100 mg PO BID 04/09/17 12/24/17 History Memantine [Namenda] 5 mg PO BID 04/09/17 12/24/17 History Polyethylene Glycol 3350 [Miralax] 17 gm PO DAILY 04/09/17 12/24/17 History Solifenacin Succinate [Vesicare] 10 mg PO DAILY 04/09/17 12/24/17 History Vit C/E/Zn/Coppr/Lutein/Zeaxan 1 cap PO BID 04/09/17 12/24/17 History [Preservision Areds 2 Softgel] Potassium Chloride Oral Liquid 20 meq PO DAILY 11/13/17 12/24/17 History Levothyroxine Sodium [Synthroid] 100 mcg PO DAILY 12/24/17 12/24/17 History amLODIPine BESYLATE [Norvasc] 5 mg PO BID 12/24/17 12/24/17 History Allergies Allergy/AdvReac Type Severity Reaction Status Date / Time cephalexin monohydrate Allergy Unknown Verified 12/24/17 17:49 [From Keflex] metronidazole [From Flagyl] Allergy Unknown Verified 12/24/17 17:49 morphine Allergy Unknown Verified 12/24/17 17:49 Sulfa (Sulfonamide Allergy Unknown Verified 12/24/17 17:49 Antibiotics) donepezil [From Aricept] AdvReac Confusion Verified 12/24/17 17:49 Penicillins AdvReac Unknown Verified 12/24/17 17:49 Physical Exam Osteopathic Statement: *. No significant issues noted on an osteopathic structural exam other than those noted in the History and Physical/Consult. Vitals: Vital Signs Temp Pulse Pulse Resp BP BP Pulse Ox 12/25/17 05:15 98.0 F 59 L 16 126/53 96 12/25/17 00:33 172/72 12/24/17 23:20 97.3 F L 61 18 178/75 98 12/24/17 21:20 97.5 F L 60 18 193/78 99 12/24/17 21:05 97.3 F L 63 16 157/64 97 12/24/17 20:50 98.5 F 57 L 16 166/71 100 12/24/17 20:40 98.6 F 57 L 16 195/77 100 12/24/17 20:32 97.4 F L 64 18 175/76 99 12/24/17 19:26 55 L 16 162/60 99 12/24/17 18:30 56 L 18 158/62 97 12/24/17 17:09 97.2 F L 57 L 18 136/61 100 Intake and Output 12/24/17 12/25/17 12/25/17 22:59 06:59 14:59 Intake Total 310 310 Balance 310 310 Intake: Blood Product 310 310 Rc As-1 Unit 0 310 [id number] Other: Voiding Method Toilet Toilet # Voids 1 1 Weight 68.492 kg 68.492 kg General: [Patient awake, alert and oriented times 3. Patient in no acute distress.] Conjunctiva pale Slow capillary refill HEENT: [PERRL. EOMI. No pharyngeal erythema or exudate.] Neck: [No adenopathy.] Cardiac: [Heart regular in rate and rhythm. No S3. No S4. No clicks, rubs. No murmur.] Lungs: [Clear to auscultation bilaterally.] Abdomen: [No mass. No organomegaly. Bowel sounds presnt and normoactive in all 4 quadrants.] Extremes: [No edema no cyanosis no claudication normal pulses] : [] Musculoskeletal: [No joint erythema, edema or tenderness.] Skin: [No rash.] Neurologic: [No lateralizing deficits. CN II - XII grossly intact.] Lymphatic: [No adenopathy.] Results CBC & Chem 7: 12/25/17 06:30 12/25/17 06:30 Labs: Abnormal Lab Results - Last 24 Hours (Table) 12/24/17 12/24/17 12/24/17 Range/Units 17:50 17:50 17:52 RBC 2.68 L (3.80-5.40) m/uL Hgb 7.7 L D (11.4-16.0) gm/dL Hct 24.3 L (34.0-46.0) % Lymphocytes # 0.9 L (1.0-4.8) k/uL BUN 42 H (7-17) mg/dL Creatinine 1.20 H (0.52-1.04) mg/dL Glucose 114 H (74-99) mg/dL Total Protein 6.2 L (6.3-8.2) g/dL Ur Leukocyte Esterase (Negative) Hyaline Casts (0-2) /lpf Urine Mucus (None) /hpf Crossmatch See Detail 12/24/17 12/25/17 12/25/17 Range/Units 19:35 06:30 06:30 RBC 3.03 L (3.80-5.40) m/uL Hgb 8.8 L (11.4-16.0) gm/dL Hct 27.6 L (34.0-46.0) % Lymphocytes # (1.0-4.8) k/uL BUN 42 H (7-17) mg/dL Creatinine 1.32 H (0.52-1.04) mg/dL Glucose 100 H (74-99) mg/dL Total Protein 6.1 L (6.3-8.2) g/dL Ur Leukocyte Esterase Trace H (Negative) Hyaline Casts 11 H (0-2) /lpf Urine Mucus Rare H (None) /hpf Crossmatch Thrombosis Risk Factor Assmnt - Choose All That Apply Any of the Below Risk Factors Present?: Yes Each Factor Represents 1 point: Obesity (BMI >25) Other Risk Factors: Yes Each Risk Factor Represents 3 Points: Age 75 years or older Other congenital or acquired thrombophilia - If yes, enter type in comment: No Thrombosis Risk Factor Assessment Total Risk Factor Score: 4 Thrombosis Risk Factor Assessment Level: Moderate Risk Assessment and Plan (1) Chronic anemia Narrative/Plan: Plans transfused packed red cells 2 patient is otherwise asymptomatic anticipate discharge home after infusion Current Visit: Yes Status: Acute Code(s): D64.9 - ANEMIA, UNSPECIFIED SNOMED Code(s): 335317366 Plan: Transfuse second unit of packed red cells anticipate discharge home will follow up in office sometime next week Time with Patient: Greater than 30
[2017-12-25 17:21] VITALS: BP 165/72; PULSE 53; RESP 16; TEMP 98.6
== END 2017-12-25 18:30 | disposition home or self-care (01) | DRG 812 ==
LOC: EC 16:57 → 5ONC 20:00
PROVIDERS: ADMIT Family Medicine; ATTEND Family Medicine
PROC: 30233N1 Transfusion of Nonautologous Red Blood Cells into Peripheral Vein, Percutaneous Approach (ICD-10-PCS; principal; 2017-12-24)
DX: D64.9 Anemia, unspecified (principal); E11.9 Type 2 diabetes mellitus without complications; F32.9 Major depressive disorder, single episode, unspecified; F41.9 Anxiety disorder, unspecified; I10 Essential (primary) hypertension; E07.9 Disorder of thyroid, unspecified; I69.920 Aphasia following unspecified cerebrovascular disease; H35.30 Unspecified macular degeneration; Z79.84 Long term (current) use of oral hypoglycemic drugs; Z79.899 Other long term (current) drug therapy; Z79.890 Hormone replacement therapy; Z90.710 Acquired absence of both cervix and uterus; Z90.13 Acquired absence of bilateral breasts and nipples; Z87.891 Personal history of nicotine dependence; Z85.3 Personal history of malignant neoplasm of breast; Z90.49 Acquired absence of other specified parts of digestive tract; Z82.49 Family history of ischemic heart disease and other diseases of the circulatory system; Z82.3 Family history of stroke; Z88.1 Allergy status to other antibiotic agents; Z88.0 Allergy status to penicillin; Z88.2 Allergy status to sulfonamides; Z88.8 Allergy status to other drugs, medicaments and biological substances
CPT/HCPCS: 36415; 71046; 80053; 81001; 82607; 82746; 83735; 83880; 84443; 84484; 85025; 85610; 85730; 86850; 86900; 86901; 86920; 93005; 99285